=== PATIENT | female | born 1940 | race Caucasian/White ===

== ENCOUNTER 2020-06-13 16:00 | Inpatient (IN) | payer MEDICARE, OTHER ==
[~2020-06-13] VITALS: Ht 154.9 cm; Wt 66.2 kg
[2020-06-13] MEDS ORDERED: LEVO75TA5 PO (17:42)
[2020-06-13] MEDS ORDERED: DORZ10DR27 EACHEYE (17:42)
[2020-06-13] MEDS ORDERED: OLAN5TAB9 PO (17:42)
[2020-06-13] MEDS ORDERED: LORA-254 PO (17:42)
[2020-06-13] MEDS ORDERED: HYDR12.58 PO (17:42)
[2020-06-13 17:44] VITALS: BP 165/88
--- NOTE | 2020-06-13 18:37 | NUR ---
Patient is alert. Patient speaks only South African or some tanzanian. Hard to do assessment due to language barrier. Patient has slight bruising on some areas of her arms. No wounds or open areas. Patient is not confused or forgetful that I can tell of at this time. No further concerns at this time.
[2020-06-13] MEDS ORDERED: MAG HYDROX/AL HYDROX/SIMETH 30 ML ORAL.SUSP PO PRN (19:30)
[2020-06-13] MEDS ORDERED: MAGNESIUM HYDROXIDE 2,400 MG/30 ML ORAL.SUSP. PO PRN (19:30)
[2020-06-13] MEDS ORDERED: ACETAMINOPHEN 325 MG TABLET PO PRN (19:30)
[2020-06-13] MEDS ORDERED: METHYL SALICYLATE/MENTHOL TOPICAL OINTMENT 57GM TUBE. TP PRN (19:30)
[2020-06-13] MEDS: LORazepam 0.5 MG TABLET PO SCH (20:50)
[2020-06-13] MEDS: DORZOLAMIDE/TIMOLOL 2%/0.5% OPHTH SOLUTION 10ML BOTTLE. OU SCH (20:51)
[2020-06-13] MEDS: OLANZapine 7.5 MG TABLET PO SCH (20:51)
--- NOTE | 2020-06-13 20:55 | PDOC ---
Exam Note: Donn Note: Please also refer to the separate dictated note~for this date of service dictated separately.~Patient seen individually. Discussed the patient with Nursing staff reviewed the chart.~Reviewed interim history and current functioning. Reviewed vital signs,~Labs/ Radiology~and current medications noted below. Continue current treatment with the changes noted in the dictated addendum note Assessment: Vital Signs/I&O: Vital Signs Date Time Temp Pulse Resp B/P (MAP) Pulse Ox O2 Delivery O2 Flow Rate FiO2 06/13/20 17:44 97.1 94 18 165/88 (113) 98 Current Medications: Meds: Current Medications Medications (Trade) Dose Ordered Sig/Jules Route PRN Reason Start Time Stop Time Status Last Admin Dose Admin Dorzolamide/ Timolol (Cosopt) 1 drop BID OU 06/13/20 21:00 06/13/20 20:51 Lorazepam (Ativan) 0.5 mg TID PO 06/13/20 21:00 06/13/20 20:50 Olanzapine (ZyPREXA) 15 mg QHS PO 06/13/20 21:00 06/13/20 20:51 I have reviewed the current psychotropics carefully including drug interactions. Risk benefit ratio favors no change other than as noted in my dictated progress note. Diagnosis: Problems: (1) Bipolar disorder (2) Anxiety disorder, unspecified GARFIELD BELTRAN MD Jun 13, 2020 20:55
[2020-06-13 21:19] LABS: ALBUMIN/GLOBULIN RATIO 1.1 (1.0-1.7); CALCIUM 8.8 mg/dL (8.5-10.1); CREATININE 1.2 mg/dL (0.6-1.0); GFR 43.4; MAGNESIUM 1.8 mg/dL (1.8-2.4); POTASSIUM 3.5 mmol/L (3.5-5.1); TOTAL BILIRUBIN 0.2 mg/dL (0.2-1.0); TOTAL PROTEIN 5.8 g/dL (6.4-8.2)
--- NOTE | 2020-06-13 22:46 | HP ---
ADMIT DATE: 06/13/2020 PSYCHIATRIC ADMISSION HISTORY/EVALUATION. This note covers elements not covered in my initial note 06/13/2020. IDENTIFYING DATA: The patient is a 79-year-old Niuean-Tongan female referred to us from [facility] after she was medically stabilized having being referred from the home where she lives with her . The patient has a history of bipolar disorder with psychotic features; anxiety, and early dementia. She has been agitated, aggressive, disruptive at home, unmanageable, resulting in the initial referral to [place] and then to us for psychiatric stabilization. I had a telephone call from Dr. Caal from [facility]. Dr. Caal notes the patient and family have some __ essentially in Niuean. CHIEF COMPLAINT: "No." The patient has difficulty understanding Georgian and said she was speaking as well. HISTORY OF PRESENT ILLNESS: The patient has a history of bipolar disorder with periods of elation, racing thoughts, alternating with depression and recent progressively worsening memory. She has been more paranoid, agitated, and disruptive at home, resulting in this referral. PAST PSYCHIATRIC HISTORY: As above. MEDICAL HISTORY: Fibromyalgia, glaucoma, hypothyroidism, and history of acute encephalopathy. CODE STATUS: Full code. DRUG ALLERGIES: Negative. DIET: Cardiac, regular, ambulates ad ja with walker. UA on 06/08/2020 was negative. CURRENT PSYCHOTROPICS: Ativan 0.5 mg t.i.d., Zyprexa 15 mg at bedtime. FAMILY HISTORY: Noncontributory. SOCIAL HISTORY: No history of alcohol, drug abuse, physical, sexual or elder abuse. She is not known to be a perpetrator. REACTION TO HOSPITALIZATION: The patient oblivious of this. ASSETS: Supportive family. REVIEW OF SYSTEMS: No CV, , pulmonary, eye, ENT system symptoms on review. Reliability is poor. MENTAL STATUS EXAMINATION: The patient is oriented to herself. Insight, judgment, recent memory is impaired. Language function is intact. Attention span is short. Mood and affect is withdrawn, anxious, somewhat suspicious and paranoid. We will attempt to obtain an seismic interpreter for tomorrow and I will reassess the patient. I saw her rather late in the day today to find an seismic interpreter. IMPRESSION: Bipolar 1 disorder, mixed with psychotic features; major neurocognitive disorder, probably vascular with delusion, depression, behavioral disturbance. Rest as above. [facility] I will see the patient daily individually from a psychiatric standpoint. Medical followup is with Dr. Singleton/Dr. Lainez. Continue the patient on her current psychotropics. Observe baseline. Discuss with the family tomorrow. Adjust further as clinically indicated. ESTIMATED LENGTH OF STAY: 10-12 days. DISPOSITION PLANS: Either back home with or a higher level of care. MAN Rosanna BELTRAN MD DR: SILVIA/thao JOB#: [id number] / [id number]
[2020-06-14 05:45] VITALS: BP 138/84
[2020-06-14] MEDS: LEVOTHYROXINE 75 MCG TABLET PO SCH (05:59)
[2020-06-14 07:02] LABS: BASO % 1 % (0-3); EOS # 0.2 x10^3/uL (0.0-0.7); EOS % 5 % (0-3); HEMOGLOBIN 11.2 g/dL (12.0-15.5); LYMPH % 24 % (24-48); MEAN CORPUSCULAR HEMOGLOBIN 32 pg (25-35); MEAN CORPUSCULAR HGB CONC 33 g/dL (31-37); MEAN CORPUSCULAR VOLUME 97 fL (79-100); MONO # 0.3 x10^3/uL (0.0-1.1); MONO % 8 % (0-9); NEUT # 2.5 x10^3uL (1.8-7.7); NEUT % 62 % (31-73); PLATELET COUNT 216 x10^3/uL (140-400); RED CELL DISTRIBUTION WIDTH 13.3 % (11.5-14.5)
[2020-06-14] MEDS: LORazepam 0.5 MG TABLET PO SCH ×3 (09:20→19:36)
[2020-06-14] MEDS: DORZOLAMIDE/TIMOLOL 2%/0.5% OPHTH SOLUTION 10ML BOTTLE. OU SCH ×2 (09:20→19:36)
[2020-06-14] MEDS: hydroCHLOROthiazide 12.5 MG CAPSULE PO SCH (09:20)
--- NOTE | 2020-06-14 12:37 | EKG ---
[address] [address] Test Date: 2020-06-14 Test Time: 10:47:35 Pat Name: CONCEPCION MAC Department: Room: [address] [place] [address] Gender: F Weight Yardage Checker: : 1940 Requested By: GARFIELD BELTRAN Order Number: [id number] Reading MD: Measurements Intervals [place] Rate: P: NM: QRS: QRSD: T: QT: QTc: Interpretive Statements
[2020-06-14 15:24] LABS: THYROID STIM HORMONE (TSH) 2.196 uIU/mL (0.358-3.740)
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
[2020-06-14 15:43] VITALS: BP 146/71
--- NOTE | 2020-06-14 16:19 | NUR ---
ACTIVITY THERAPY ASSESSMENT Completed based on attempted interview and Pt's Psychosocial information. MEAT DEPARTMENT MANAGER met with Pt. at 1045 this morning in her room. Pt. had her breakfast tray in front of her and quietly spoke to MEAT DEPARTMENT MANAGER in Sierra Leonean. MEAT DEPARTMENT MANAGER does not speak Sierra Leonean but had a list of leisure interest questions printed in Sierra Leonean and handed it to Pt. She appeared to read it, following words with a pen and mumbling quietly. She gently scribbled over random lines/ words and did not appear to understand what the questions were asking. She did not write any words/ answers to any questions. MEAT DEPARTMENT MANAGER used a [employer] cell phone to access Lat49 Anthropologist Physical which spoke Sierra Leonean to Pt; however, Pt. did not seem to understand what the device was saying. MEAT DEPARTMENT MANAGER had Pt. speak into the phone and the translation collected "Hey, Jessica, I'm sorry baby, Elva, Elva" and "stop at [facility]." MEAT DEPARTMENT MANAGER cannot confirm no deny the accuracy of those statements. Pt. was calm the entire time, seemed she could have read/ looked at those assessment questions for quite some time if MEAT DEPARTMENT MANAGER did not collect it back and say thank you. Pt. waved as MEAT DEPARTMENT MANAGER left and said "ciao." Pt's Psychosocial indicated Pt. enjoys cooking, walking (treadmill), Sierra Leonean music and magazines, dancing and socializing with her family. Initial goal aimed to increase stimulation: Pt. will participate in at least five individual Activity Therapy Sessions before discharge.
--- NOTE | 2020-06-14 16:37 | NUR ---
Nursing note: Pt has remained in her room for most of this shift. She is pleasant, med compliant and cooperative. Pt does not appear to be in any pain or discomfort. Pt is unable to speak Maori and when it is attempted to use HoverWind, pt only reads the statements/questions and does not actually respond to them. Pt has been observed picking at unseen things on the floor in her room, but does not seem bothered by anything. She is currently sitting quietly in her room. Will continue to monitor.
[2020-06-14] MEDS: OLANZapine 7.5 MG TABLET PO SCH (19:37)
--- NOTE | 2020-06-14 21:50 | NUR ---
Nursing Note: Pt withdrawn to room, sitting quietly at shift change. Pt calm but confused. Communication difficult due to language barrier and confusion. Pt cooperative with assessment and compliant with medications administered whole. Pt currently sitting quietly in the hallway.
--- NOTE | 2020-06-14 22:00 | PDOC ---
Exam Note: Donn Note: Please also refer to the separate dictated note~for this date of service dictated separately.~Patient seen individually. Discussed the patient with Nursing staff reviewed the chart.~Reviewed interim history and current functioning. Reviewed vital signs,~Labs/ Radiology~and current medications noted below. Continue current treatment with the changes noted in the dictated addendum note Assessment: Vital Signs/I&O: Vital Signs Date Time Temp Pulse Resp B/P (MAP) Pulse Ox O2 Delivery O2 Flow Rate FiO2 06/14/20 15:43 97.2 94 16 146/71 (96) 97 I & O 06/13/20 06/13/20 06/14/20 14:59 22:59 06:59 Intake Total 340 ml Balance 340 ml Labs: Laboratory Tests Test 06/14/20 06:44 White Blood Count 4.0 x10^3/uL (4.0-11.0) Red Blood Count 3.50 x10^6/uL (3.50-5.40) Hemoglobin 11.2 g/dL (12.0-15.5) L Hematocrit 34.0 % (36.0-47.0) L Mean Corpuscular Volume 97 fL (79-100) Mean Corpuscular Hemoglobin 32 pg (25-35) Mean Corpuscular Hemoglobin Concent 33 g/dL (31-37) Red Cell Distribution Width 13.3 % (11.5-14.5) Platelet Count 216 x10^3/uL (140-400) Neutrophils (%) (Auto) 62 % (31-73) Lymphocytes (%) (Auto) 24 % (24-48) Monocytes (%) (Auto) 8 % (0-9) Eosinophils (%) (Auto) 5 % (0-3) H Basophils (%) (Auto) 1 % (0-3) Neutrophils # (Auto) 2.5 x10^3uL (1.8-7.7) Lymphocytes # (Auto) 1.0 x10^3/uL (1.0-4.8) Monocytes # (Auto) 0.3 x10^3/uL (0.0-1.1) Eosinophils # (Auto) 0.2 x10^3/uL (0.0-0.7) Basophils # (Auto) 0.0 x10^3/uL (0.0-0.2) Vitamin B12 Level 497 pg/mL (247-911) 25-Hydroxy Vitamin D Total 31.0 ng/mL (30-100) Thyroxine (T4) 8.0 ug/dL (4.5-12.0) Total Triiodothyronine (TT3) 92 ng/dL (71-180) Treponema pallidum Antibody Nonreactive (Nonreactive) Current Medications: Meds: Current Medications Medications (Trade) Dose Ordered Sig/Jules Route PRN Reason Start Time Stop Time Status Last Admin Dose Admin Levothyroxine Sodium (Synthroid) 75 mcg DAILY06 PO 06/14/20 06:00 06/14/20 05:59 Hydrochlorothiazide (Microzide) 12.5 mg DAILY PO 06/14/20 09:00 06/14/20 09:20 I have reviewed the current psychotropics carefully including drug interactions. Risk benefit ratio favors no change other than as noted in my dictated progress note. 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
[2020-06-15] MEDS: LEVOTHYROXINE 75 MCG TABLET PO SCH (05:27)
[2020-06-15 06:08] VITALS: BP 147/84
[2020-06-15] MEDS: DORZOLAMIDE/TIMOLOL 2%/0.5% OPHTH SOLUTION 10ML BOTTLE. OU SCH ×2 (09:00→19:51)
--- NOTE | 2020-06-15 10:31 | NUR ---
WEEKLY ACTIVITY THERAPY NOTE Date of Admission: 06/13 Date of AT Assessment: 06/14 Precipitating behaviors that initiated intake and admission: nervous, "out of control,"paranoid, hallucinating, nonsensical speech Goal aimed: to increase stimulation Initial Goal: Pt. will participate in at least five individual Activity Therapy Sessions before discharge. Weekly progress towards goal: goal evaluation begins next week Group participation level: NA Weekly highlights: arrived and assessed Pt on Friday Behaviors observed: calm and appears content in room, speaks Omani Plan: no change to goal Beneficial adaptations:
[2020-06-15] MEDS: LORazepam 0.5 MG TABLET PO SCH ×3 (10:51→20:10)
[2020-06-15] MEDS: hydroCHLOROthiazide 12.5 MG CAPSULE PO SCH (10:51)
--- NOTE | 2020-06-15 11:37 | TX PLAN ---
Interdisciplinary Tx Plan Admission Information Jun 13, 2020 at 16:00 Legal Status (on Admission): Voluntary, DPOA DPOA/Guardian Name: Elva Johnson- daughter Contact Other Contact Name: Bart Everett Verified Code Status: Full Code Allergies: Coded Allergies: No Known Drug Allergies (Unverified , 06/13/20) Estimated Length of Stay: 14 Diagnoses Primary Diagnosis: Bipolar d/o with psychotic features Reasons for Admission: Delusions, Depressed, Sig. Change Appetite, Anxiety/Panic, Suspicious/paranoid, Confusion/Disoriented, Isolating Problem in Patient's Words: DPOA reports that Lesly's mood and cognition began to decline about 6 weeks ago when Lesly's spouse started chemo treatments. Her mood progressively worsened to where she was not eating or drinking so family took her to [facility]. Additional Admission Comments: Per intake record, hallucinating, increasingly depressed and anxious, having nonsensical speech, catatonic posturing, staring/rocking in a chair, poor intake of foods and fluids, and ruminating. Problems Active Problems: poor intake of meals and fluids paranoia confusion, disorientation nonsensical speech catatonic episodes Inactive Problems: slept 7.5 hours last night medication compliant Pt Strengths/Limitations Ability for [place]: Poor Cognitive Functioning/Ability: Fair Communication Skills/Ability: Fair Financial Resources: Fair Insight/Judgement: Poor Intellectual Ability: Fair Physical Health: Fair Social Skills: Fair Stability in Family: Good Verbal Skills: Fair Discharge Criteria Discharge Criteria: Adequate arrangements @DC, Improved behavior, Improved mood/thought Preliminary Discharge Plan Preliminary DC Plan: Home Special Precautions Fall Risk: High Initial D/C Plan Home with spouse, daugthers assist with care giving. Identified Discharge Needs: Follow up with PCP and Psychiatrist Currently Utilized Resources Currently Utilized Resources/P: PCP Out patient psychiatry Identified Problems/Hx/Goals Objectives/Short-Term Goals Short Term Goals: Control abnormal behavior, Dec. Anxiety/Panic, Decrease [place] tion, Dec. Symp. Depression, Medication Stabilization, Monitor Med Effects, Prevent Deterioration Short Term Goals in Patient's: Per POA, for Lesly to return to baseline, eating/drinking adequate amounts, laughing, and socializing with family. Interventions/Frequency Staff Interventions/Frequency&: Nursing provides routine safety checks, medication administration, and adl support. Psychiatry visits three times weekly. SW visits twice weekly. Recreational therapy groups as Lesly desires. 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 Social: Lesly enjoys looking at magazines, Tuvaluan music, and walking. Education: Lesly attended school thru the third grade. Community Follow-up PCP Out patient psychiatry Community Provider/Family Inpu: wilbur Stevenson, participated in team meeting via phone on 06/15/20. Treatment Plan Explained Patient/Insulation Manager had this treatment plan explained to him/her as indicated by the signature below and has been given the opportunity to ask questions and make suggestions: Date: Patient/Insulation Manager Signature: GIUSEPPE BEACH Jun 15, 2020 11:37
[2020-06-15 11:59] LABS: COLOR,URINE YELLOW
[2020-06-15 12:05] LABS: CLARITY,URINE CLEAR; GLUCOSE,URINE NEG (NEG)
[2020-06-15 12:09] LABS: BILIRUBIN,URINE NEG (NEG)
[2020-06-15 12:13] LABS: NITRITE,URINE NEG (NEG); UROBILINOGEN,URINE 0.2 mg/dL (0.2 mg/dL)
[2020-06-15 12:17] LABS: BACTERIA,URINE FEW /HPF (0-FEW); SQUAMOUS EPITHELIAL CELL,UR OCC /LPF
[2020-06-15 16:22] VITALS: BP 149/83
[2020-06-15] MEDS: lamoTRIgine 25 MG TABLET. PO SCH (19:51)
[2020-06-15] MEDS: OLANZapine 10 MG TABLET PO SCH (19:51)
--- NOTE | 2020-06-15 21:01 | PDOC ---
Exam Note: Donn Note: Please also refer to the separate dictated note~for this date of service dictated separately.~Patient seen individually. Discussed the patient with Nursing staff reviewed the chart.~Reviewed interim history and current functioning. Reviewed vital signs,~Labs/ Radiology~and current medications noted below. Continue current treatment with the changes noted in the dictated addendum note Assessment: Vital Signs/I&O: Vital Signs Date Time Temp Pulse Resp B/P (MAP) Pulse Ox O2 Delivery O2 Flow Rate FiO2 06/15/20 16:22 97.4 92 16 149/83 (105) 97 06/15/20 06:08 Room Air I & O 06/14/20 06/14/20 06/15/20 15:00 23:00 07:00 Intake Total 600 ml 360 ml Balance 600 ml 360 ml Labs: Laboratory Tests Test 06/15/20 09:40 Urine Collection Type Unknown Urine Color Yellow Urine Clarity Clear Urine pH 6.0 Urine Specific [place] 1.015 Urine Protein Neg (NEG-TRACE) Urine Glucose (UA) Neg mg/dL (NEG) Urine Ketones (Stick) Neg mg/dL (NEG) Urine Blood Neg (NEG) Urine Nitrite Neg (NEG) Urine Bilirubin Neg (NEG) Urine Urobilinogen Dipstick 0.2 mg/dL (0.2 mg/dL) Urine Leukocyte Esterase Neg (NEG) Urine RBC 1-2 /HPF (0-2) Urine WBC 1-4 /HPF (0-4) Urine Squamous Epithelial Cells Occ /LPF Urine Bacteria Few /HPF (0-FEW) Current Medications: Meds: Current Medications Medications (Trade) Dose Ordered Sig/Jules Route PRN Reason Start Time Stop Time Status Last Admin Dose Admin Olanzapine (ZyPREXA) 10 mg QHS PO 06/15/20 21:00 06/15/20 19:51 Lamotrigine (LaMICtal) 25 mg QHS PO 06/15/20 21:00 06/17/20 23:00 06/15/20 19:51 Lorazepam (Ativan) 0.5 mg HS PO 06/15/20 21:00 06/15/20 20:10 I have reviewed the current psychotropics carefully including drug interactions. Risk benefit ratio favors no change other than as noted in my dictated progress note. 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
--- NOTE | 2020-06-15 22:08 | NUR ---
Nursing Note: Pt withdrawn to room, sitting quietly at shift change. Pt calm, but disorganized and confused. Pt cooperative with assessment and compliant with medications administered whole. Pt currently resting quietly in bed.
[2020-06-15 23:07] LABS: HEMOGLOBIN A1C 5.1 % (4.8-5.6)
[2020-06-16] MEDS: LEVOTHYROXINE 75 MCG TABLET PO SCH (05:32)
[2020-06-16 05:35] VITALS: BP 146/84
[2020-06-16] MEDS: LORazepam 0.5 MG TABLET PO SCH ×3 (08:50→20:23)
[2020-06-16] MEDS: DORZOLAMIDE/TIMOLOL 2%/0.5% OPHTH SOLUTION 10ML BOTTLE. OU SCH ×2 (08:50→20:23)
[2020-06-16] MEDS: hydroCHLOROthiazide 12.5 MG CAPSULE PO SCH (08:50)
[2020-06-16] MEDS ORDERED: LORazepam 0.5 MG TABLET PO SCH (09:00)
[2020-06-16 16:21] VITALS: BP 132/82
[2020-06-16] MEDS: OLANZapine 10 MG TABLET PO SCH (20:17)
[2020-06-16] MEDS: lamoTRIgine 25 MG TABLET. PO SCH (20:21)
--- NOTE | 2020-06-16 20:47 | PDOC ---
Exam Note: Donn Note: Please also refer to the separate dictated note~for this date of service dictated separately.~Patient seen individually. Discussed the patient with Nursing staff reviewed the chart.~Reviewed interim history and current functioning. Reviewed vital signs,~Labs/ Radiology~and current medications noted below. Continue current treatment with the changes noted in the dictated addendum note Assessment: Vital Signs/I&O: Vital Signs Date Time Temp Pulse Resp B/P (MAP) Pulse Ox O2 Delivery O2 Flow Rate FiO2 06/16/20 16:21 97.2 76 16 132/82 (99) 97 06/15/20 06:08 Room Air I & O 06/15/20 06/15/20 06/16/20 15:00 23:00 07:00 Intake Total 200 ml 720 ml Balance 200 ml 720 ml Current Medications: Meds: Current Medications Medications (Trade) Dose Ordered Sig/Jules Route PRN Reason Start Time Stop Time Status Last Admin Dose Admin Olanzapine (ZyPREXA) 10 mg QHS PO 06/15/20 21:00 06/16/20 20:17 Lamotrigine (LaMICtal) 25 mg QHS PO 06/15/20 21:00 06/17/20 23:00 06/16/20 20:21 Lorazepam (Ativan) 0.25 mg BID92 PO 06/16/20 09:00 06/16/20 15:03 Lorazepam (Ativan) 0.5 mg HS PO 06/15/20 21:00 06/16/20 20:23 I have reviewed the current psychotropics carefully including drug interactions. Risk benefit ratio favors no change other than as noted in my dictated progress note. Diagnosis: Problems: (1) Bipolar disorder (2) Anxiety disorder, unspecified (3) Dementia, vascular, with depression (4) Dementia, vascular, with delusions (5) Bipolar disorder, curr episode mixed, severe, with psychotic features (6) Vascular dementia of acute onset with behavioral disturbance (7) Major neurocognitive disorder, due to vascular disease, with behavioral disturbance, mild GARFIELD BELTRAN MD Jun 16, 2020 20:47
--- NOTE | 2020-06-16 22:06 | NUR ---
Patient compliant with medications taken whole. She speaks mostly Maldivian but said "thank you very much" and was able to ask for more water. Patient has had no adverse behaviors this shift and has been sitting calmly in the chair in her room.
[2020-06-17] MEDS: LEVOTHYROXINE 75 MCG TABLET PO SCH (05:24)
[2020-06-17 06:34] VITALS: BP 139/81
[2020-06-17 06:45] LABS: BACTERIA,URINE FEW /HPF (0-FEW); BILIRUBIN,URINE NEG (NEG); CLARITY,URINE HAZY; COLOR,URINE YELLOW; GLUCOSE,URINE NEG (NEG); NITRITE,URINE NEG (NEG); RBC,URINE RARE /HPF (0-2); SQUAMOUS EPITHELIAL CELL,UR FEW /LPF; UROBILINOGEN,URINE 0.2 mg/dL (0.2 mg/dL)
[2020-06-17] MEDS: DORZOLAMIDE/TIMOLOL 2%/0.5% OPHTH SOLUTION 10ML BOTTLE. OU SCH ×2 (09:45→20:24)
[2020-06-17] MEDS: hydroCHLOROthiazide 12.5 MG CAPSULE PO SCH (09:45)
[2020-06-17] MEDS: LORazepam 0.5 MG TABLET PO SCH ×3 (09:46→20:24)
--- NOTE | 2020-06-17 11:19 | CONS ---
DATE OF CONSULTATION: 06/17/2020 ATTENDING PHYSICIAN: Dr. Gee. HISTORY AND PHYSICAL: The patient is a 79-year-old female who speaks [place], she has a limited understanding of Vincentian. She has been living with her . She has a longstanding history of bipolar disorder, anxiety and dementia. They could not manage her at home. She was admitted for further treatment and evaluation. PAST MEDICAL HISTORY: Gleaned from the chart. She has bipolar disorder, generalized anxiety, dementia, vascular with behavioral issues, manic episodes and neurocognitive deficits. She is also hypothyroid. Her current medicines include dorzolamide eye drops, hydrochlorothiazide, Synthroid, lorazepam, and Zyprexa. She has no recorded drug allergies. She is a nonsmoker and nondrinker. FAMILY HISTORY: Unobtainable due to language barrier. REVIEW OF SYSTEMS: Unobtainable due to language barrier. PHYSICAL EXAMINATION: GENERAL: When I saw her, this is a pleasant elderly female, in no acute distress. INITIAL VITAL SIGNS: Showed a blood pressure 132/82, pulse is 76 and regular, temperature 97.2. Her oxygen saturations are 97%. HEENT: Head is without trauma. Pupils are a bit sunken. Orbits are normal. NECK: Supple. No bruits identified. Lungs are otherwise clear to auscultation. CARDIOVASCULAR: Showed regular heart tones. No gallops. ABDOMEN: Soft, no guarding. EXTREMITIES: Without edema. NEUROLOGIC: Focally intact. We could not assess a full neurologic exam due to the patient's language barriers and confusion. PERTINENT LABORATORY: Sodium 144, potassium 3.5 mEq per liter. Her hemoglobin is 11.2 grams/dL with white count of 4000. Treponema pallidum serology was negative. The rest of the lab work was reviewed and unremarkable. FINAL DISCHARGE DIAGNOSES: 1. This 79-year-old female has profound dementia with behavioral issues. 2. Psychosis. 3. Hypothyroidism, on replacement. 4. Essential hypertension, currently normotensive. RECOMMENDATIONS: 1. I reviewed her medication. I really do not think she needs the hydrochlorothiazide. I took the liberty of stopping it. 2. Other home meds were reviewed and should be continued. 3. She is medically stable at this time. I should gladly follow along during the course of her inpatient stay. Thank you so much for asking me to see this patient for medical consultation. MARLENE AGUDELO MD DR: DALIA/thao JOB#: [id number] / [id number]
--- NOTE | 2020-06-17 14:03 | NUR ---
Do Ho informed of LFT and D-dimer results. No new orders.
--- NOTE | 2020-06-17 15:33 | NUR ---
Pt up for meals in room. Appetite poor. Has been withdrawn and quiet. Refused to open eyes for Dr Lainez. Has been compliant with meds and cares.
[2020-06-17 16:05] VITALS: BP 139/87
[2020-06-17] MEDS: lamoTRIgine 25 MG TABLET. PO SCH (20:24)
[2020-06-17] MEDS: OLANZapine 10 MG TABLET PO SCH (20:24)
--- NOTE | 2020-06-17 21:37 | PDOC ---
Exam Note: Donn Note: This note is a late entry for 06/14/2020 covers elements not covered in my initial note. Subjective: The patient was reviewed on telehealth rounds in the evening of 06/14/2020 with Maddie CORLEY. Discussed with nursing staff, reviewed the chart. The patient slept for 7-1/2 hours previous night. Overall the patient has been pleasant, compliant with medications. She seemed to be paranoid and suspicious, picking on things from the floor when there is nothing there. She did have a telephone conversation with her daughter yesterday. Due to the language barrier and even environment she has been more isolated and we will coordinate with the daughter being on the video conference with her couple of times a day to help with this. Late in the evening I had a lengthy conversation with the patients daughter Elva and gathered the patients history. She had been treated for many years by Dr. Hoyt, psychiatrist in [place] who has since retired. She was diagnosed with bipolar disorder and remained on lithium for many years before developing some renal complications and this was stopped. Her care was then transferred and according to the daughter most recently she was started on carbamazepine for her bipolar disorder. Nevertheless, it seems like her carbamazepine was discontinued at [facility]. Reportedly per the daughter, CT head and MRIs were clinically non-conclusive. Over the years as the children grew up they remembered their mother having periods of time when she will become totally non-functional, drying can worker the corner of the house oblivious of what was going on around her stating into space, crying and unable to take care of any of the brand coordinator that she was managing quite efficiently before that. Review of Systems: No CV, , pulmonary, eye, ENT system symptoms on review. Mental Status Exam: The patient is oriented to herself and situation. Speech has moderate latency. Often response is monosyllabic. Abstraction is fair. Computation is impaired. Language function is intact. Attention span is short. She appears somewhat paranoid. No active suicidal or homicidal ideation. Laboratory Data: Reviewed. Impression: Bipolar 1 disorder depressed with psychotic features. 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 Anxiety disorder unspecified. Impulse control disorder unspecified. Hypothyroidism. History of acute encephalopathy. Glaucoma. Plan: For now the patient remains on Ativan 0.5 mg t.i.d., Zyprexa 15 mg h.s. She remains psychotic despite this and we may consider reducing the Zyprexa starting Risperdal considering Lamictal as a mood stabilizer and gradually tapering the Ativan. Discussed all this at length with the daughter. Assessment: Vital Signs/I&O: Vital Signs Date Time Temp Pulse Resp B/P (MAP) Pulse Ox O2 Delivery O2 Flow Rate FiO2 06/17/20 16:05 97.4 76 16 139/87 (104) 96 06/17/20 06:34 Room Air I & O 06/16/20 06/16/20 06/17/20 15:00 23:00 07:00 Intake Total 720 ml 560 ml Balance 720 ml 560 ml Labs: Laboratory Tests Test 06/17/20 06:00 Urine Collection Type Unknown Urine Color Yellow Urine Clarity Hazy Urine pH 6.5 Urine Specific [place] 1.015 Urine Protein Neg (NEG-TRACE) Urine Glucose (UA) Neg mg/dL (NEG) Urine Ketones (Stick) Neg mg/dL (NEG) Urine Blood Neg (NEG) Urine Nitrite Neg (NEG) Urine Bilirubin Neg (NEG) Urine Urobilinogen Dipstick 0.2 mg/dL (0.2 mg/dL) Urine Leukocyte Esterase Trace (NEG) Urine RBC Rare /HPF (0-2) Urine WBC 5-10 /HPF (0-4) Urine Squamous Epithelial Cells Few /LPF Urine Bacteria Few /HPF (0-FEW) Urine Mucus Slight /LPF Current Medications: I have reviewed the current psychotropics carefully including drug interactions. Risk benefit ratio favors no change other than as noted in my dictated progress note. Diagnosis: Problems: (1) Bipolar disorder (2) Anxiety disorder, unspecified (3) Dementia, vascular, with depression (4) Dementia, vascular, with delusions (5) Bipolar disorder, curr episode mixed, severe, with psychotic features (6) Vascular dementia of acute onset with behavioral disturbance (7) Major neurocognitive disorder, due to vascular disease, with behavioral disturbance, mild GARFIELD BELTRAN MD Jun 17, 2020 21:37
--- NOTE | 2020-06-17 21:50 | PDOC ---
Exam Note: Donn Note: This note is a late entry for 06/15/2020 covers elements not covered in my initial note. Subjective: The patient was reviewed on telehealth rounds in the morning of 06/15/2020 for a treatment team meeting with Matilda Reynoso and Angeles (manager social responsibility), Suze, activity therapy and Nevin RN. Discussed with nursing staff, reviewed the chart. The patient slept for 5 hours previous night. The patients daughter Elva attended the treatment team meeting. We reviewed her history at length again and symptoms are reflective of bipolar disorder. She remains somewhat isolated on the unit due to her language barrier and nursing staff will coordinate with the daughter to have video conference with the patient twice a day. Overall the patient remains withdrawn, remains somewhat paranoid during conversations with daughter. Review of Systems: No CV, , pulmonary, eye, ENT system symptoms on review. Mental Status Exam: The patient is oriented to herself. She is pleasant, verbal, interactive as I met with her but communication is difficult due to language barrier. Abstraction is fair. Computation is impaired. Language function is intact. Mood and affect somewhat withdrawn. Laboratory Data: Reviewed. Impression: Bipolar 1 disorder depressed with psychotic features. 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 Anxiety disorder unspecified. Impulse control disorder unspecified. Plan: We will go ahead and reduce the Zyprexa from 50 mg h.s. to 10 mg h.s. and then down to 3 mg h.s. Start Risperdal 0.5 mg h.s. and Lamictal 25 mg a day increasing in 3 days to 50 mg a day as a mood stabilizer. Continue rest of the psychotropics. She does complain of having had some vomiting previous night but none today. We will monitor this. Assessment: Vital Signs/I&O: Vital Signs Date Time Temp Pulse Resp B/P (MAP) Pulse Ox O2 Delivery O2 Flow Rate FiO2 06/17/20 16:05 97.4 76 16 139/87 (104) 96 06/17/20 06:34 Room Air I & O 06/16/20 06/16/20 06/17/20 15:00 23:00 07:00 Intake Total 720 ml 560 ml Balance 720 ml 560 ml Labs: Laboratory Tests Test 06/17/20 06:00 Urine Collection Type Unknown Urine Color Yellow Urine Clarity Hazy Urine pH 6.5 Urine Specific [place] 1.015 Urine Protein Neg (NEG-TRACE) Urine Glucose (UA) Neg mg/dL (NEG) Urine Ketones (Stick) Neg mg/dL (NEG) Urine Blood Neg (NEG) Urine Nitrite Neg (NEG) Urine Bilirubin Neg (NEG) Urine Urobilinogen Dipstick 0.2 mg/dL (0.2 mg/dL) Urine Leukocyte Esterase Trace (NEG) Urine RBC Rare /HPF (0-2) Urine WBC 5-10 /HPF (0-4) Urine Squamous Epithelial Cells Few /LPF Urine Bacteria Few /HPF (0-FEW) Urine Mucus Slight /LPF Current Medications: I have reviewed the current psychotropics carefully including drug interactions. Risk benefit ratio favors no change other than as noted in my dictated progress note. Diagnosis: Problems: (1) Bipolar disorder (2) Anxiety disorder, unspecified (3) Dementia, vascular, with depression (4) Dementia, vascular, with delusions (5) Bipolar disorder, curr episode mixed, severe, with psychotic features (6) Vascular dementia of acute onset with behavioral disturbance (7) Major neurocognitive disorder, due to vascular disease, with behavioral disturbance, mild GARFIELD BELTRAN MD Jun 17, 2020 21:50
--- NOTE | 2020-06-17 22:01 | PDOC ---
Exam Note: Donn Note: This note is a late entry for 06/16/2020 covers elements not covered in my initial note. Subjective: The patient was reviewed on telehealth rounds in the evening of 06/16/2020 with Nevin CORLEY. Discussed with nursing staff, reviewed the chart. The patient slept for 5-3/4 hours previous night. The patient has talked to her family twice but we are awaiting feedback from the family and how they think she is doing. Nevertheless, initial feedback from Elva, delbert daughter via the nursing staff indicates that she is still paranoid but improved. We started Lamictal as a mood stabilizer, reduced Zyprexa, added Risperdal tapering the Ativan. Review of Systems: No CV, , pulmonary, eye, ENT system symptoms on review. Reliability poor due to language barrier and she speaks essentially only in Dive[place]. Mental Status Exam: The patient is oriented to herself and situation. She is verbal, interactive but not very communicative due to the language barrier. She was otherwise pleasant, smiling, seems more disorganized and this is reflective of her language/communication problems. Speech has moderate latency. Often response is monosyllabic. Abstraction is fair. Computation is impaired. L anguage function is intact. Attention span is short. No psychotic symptoms, suicidal or homicidal ideation. Laboratory Data: Reviewed. Impression: Bipolar 1 disorder depressed with psychotic features. 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 Anxiety disorder unspecified. Impulse control disorder unspecified. Hypothyroidism. History of acute encephalopathy. Glaucoma. Plan: No change from initial note. Assessment: Vital Signs/I&O: Vital Signs Date Time Temp Pulse Resp B/P (MAP) Pulse Ox O2 Delivery O2 Flow Rate FiO2 06/17/20 16:05 97.4 76 16 139/87 (104) 96 06/17/20 06:34 Room Air I & O 06/16/20 06/16/20 06/17/20 15:00 23:00 07:00 Intake Total 720 ml 560 ml Balance 720 ml 560 ml Labs: Laboratory Tests Test 06/17/20 06:00 Urine Collection Type Unknown Urine Color Yellow Urine Clarity Hazy Urine pH 6.5 Urine Specific [place] 1.015 Urine Protein Neg (NEG-TRACE) Urine Glucose (UA) Neg mg/dL (NEG) Urine Ketones (Stick) Neg mg/dL (NEG) Urine Blood Neg (NEG) Urine Nitrite Neg (NEG) Urine Bilirubin Neg (NEG) Urine Urobilinogen Dipstick 0.2 mg/dL (0.2 mg/dL) Urine Leukocyte Esterase Trace (NEG) Urine RBC Rare /HPF (0-2) Urine WBC 5-10 /HPF (0-4) Urine Squamous Epithelial Cells Few /LPF Urine Bacteria Few /HPF (0-FEW) Urine Mucus Slight /LPF Current Medications: I have reviewed the current psychotropics carefully including drug interactions. Risk benefit ratio favors no change other than as noted in my dictated progress note. Diagnosis: Problems: (1) Bipolar disorder (2) Anxiety disorder, unspecified (3) Dementia, vascular, with depression (4) Dementia, vascular, with delusions (5) Bipolar disorder, curr episode mixed, severe, with psychotic features (6) Vascular dementia of acute onset with behavioral disturbance (7) Major neurocognitive disorder, due to vascular disease, with behavioral disturbance, mild GARFIELD BELTRAN MD Jun 17, 2020 22:01
--- NOTE | 2020-06-17 22:06 | PDOC ---
Exam Note: Donn Note: Please also refer to the separate dictated note~for this date of service dictated separately.~Patient seen individually. Discussed the patient with Nursing staff reviewed the chart.~Reviewed interim history and current functioning. Reviewed vital signs,~Labs/ Radiology~and current medications noted below. Continue current treatment with the changes noted in the dictated addendum note Assessment: Vital Signs/I&O: Vital Signs Date Time Temp Pulse Resp B/P (MAP) Pulse Ox O2 Delivery O2 Flow Rate FiO2 06/17/20 16:05 97.4 76 16 139/87 (104) 96 06/17/20 06:34 Room Air I & O 06/16/20 06/16/20 06/17/20 15:00 23:00 07:00 Intake Total 720 ml 560 ml Balance 720 ml 560 ml Labs: Laboratory Tests Test 06/17/20 06:00 Urine Collection Type Unknown Urine Color Yellow Urine Clarity Hazy Urine pH 6.5 Urine Specific [place] 1.015 Urine Protein Neg (NEG-TRACE) Urine Glucose (UA) Neg mg/dL (NEG) Urine Ketones (Stick) Neg mg/dL (NEG) Urine Blood Neg (NEG) Urine Nitrite Neg (NEG) Urine Bilirubin Neg (NEG) Urine Urobilinogen Dipstick 0.2 mg/dL (0.2 mg/dL) Urine Leukocyte Esterase Trace (NEG) Urine RBC Rare /HPF (0-2) Urine WBC 5-10 /HPF (0-4) Urine Squamous Epithelial Cells Few /LPF Urine Bacteria Few /HPF (0-FEW) Urine Mucus Slight /LPF Current Medications: I have reviewed the current psychotropics carefully including drug interactions. Risk benefit ratio favors no change other than as noted in my dictated progress note. Diagnosis: Problems: (1) Bipolar disorder (2) Anxiety disorder, unspecified (3) Dementia, vascular, with depression (4) Dementia, vascular, with delusions (5) Bipolar disorder, curr episode mixed, severe, with psychotic features (6) Vascular dementia of acute onset with behavioral disturbance (7) Major neurocognitive disorder, due to vascular disease, with behavioral disturbance, mild GARFIELD BELTARN MD Jun 17, 2020 22:06
--- NOTE | 2020-06-17 22:25 | NUR ---
Pt awake in her bed this evening, laying calmly. Pt compliant with whole medications and assessment. Pt currently laying in bed awake.
[2020-06-17] MEDS: risperiDONE 0.25 MG TABLET. PO SCH (22:53)
[2020-06-18] MEDS: LEVOTHYROXINE 75 MCG TABLET PO SCH (05:02)
[2020-06-18 06:17] VITALS: BP 136/84
[2020-06-18] MEDS: LORazepam 0.5 MG TABLET PO SCH ×3 (08:42→20:38)
[2020-06-18] MEDS: DORZOLAMIDE/TIMOLOL 2%/0.5% OPHTH SOLUTION 10ML BOTTLE. OU SCH ×2 (08:43→20:35)
--- NOTE | 2020-06-18 09:58 | NUR ---
Patient calm and cooperative. Patient family called to translate per treatment team. Patient confused about the year but is more with it today during general conversation per family. Patient has no further needs at this time. Patient states she slept well.
--- NOTE | 2020-06-18 10:30 | NUR ---
Resumed care of pt.
[2020-06-18 16:24] VITALS: BP 138/86
--- NOTE | 2020-06-18 16:30 | NUR ---
Pt c/o low back and B knee pain. Tylenol given and bengay applied.
[2020-06-18] MEDS: OLANZapine 10 MG TABLET PO SCH (20:35)
[2020-06-18] MEDS: risperiDONE 0.25 MG TABLET. PO SCH (20:35)
[2020-06-18] MEDS: lamoTRIgine 25 MG TABLET. PO SCH (20:38)
--- NOTE | 2020-06-18 20:45 | PDOC ---
Exam Note: Donn Note: This note is a late entry for 06/17/2020 covers elements not covered in my initial note. Subjective: The patient was reviewed on telehealth rounds in the evening of 06/17/2020 with Mariel CORLEY. Discussed with nursing staff, reviewed the chart. The patient slept for 7-1/2 hours previous night. The patient has had conversation with her family but we have not received feedback from them. She does appear somewhat less paranoid. Review of Systems: No CV, , pulmonary, eye, ENT system symptoms on review. Ambulation impaired with walker. She has significant language barrier due to speaking Cam[place]onian preferentially. Mental Status Exam: The patient is oriented to herself and situation. Speech is coherent, has some latency. Often response is monosyllabic. Abstraction is fair. Computation is impaired. Language function is intact. Attention span is short. No psychotic symptoms, suicidal or homicidal ideation. She is less paranoid. Laboratory Data: Reviewed. Impression: Bipolar 1 disorder depressed with psychotic features. 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 Anxiety disorder unspecified. Plan: No change from initial note. Oral intake has been poor and we have encouraged this and have the family encourage her as well. Zyprexa has been tapered. She has been started on Lamictal which is being adjusted and she was started on Risperdal. Adjust these as clinically intake. Assessment: Vital Signs/I&O: Vital Signs Date Time Temp Pulse Resp B/P (MAP) Pulse Ox O2 Delivery O2 Flow Rate FiO2 06/18/20 16:24 97.8 85 20 138/86 (103) 96 06/18/20 06:17 Room Air I & O 06/17/20 06/17/20 06/18/20 15:00 23:00 07:00 Intake Total 320 ml 360 ml Balance 320 ml 360 ml Current Medications: Meds: Current Medications Medications (Trade) Dose Ordered Sig/Jules Route PRN Reason Start Time Stop Time Status Last Admin Dose Admin Lamotrigine (LaMICtal) 50 mg QHS PO 06/18/20 21:00 06/18/20 20:38 Olanzapine (ZyPREXA) 5 mg QHS PO 06/18/20 21:00 06/18/20 20:38 Risperidone (RisperDAL) 0.5 mg QHS PO 06/17/20 22:45 06/18/20 20:35 I have reviewed the current psychotropics carefully including drug interactions. Risk benefit ratio favors no change other than as noted in my dictated progress note. Diagnosis: Problems: (1) Bipolar disorder (2) Anxiety disorder, unspecified (3) Dementia, vascular, with depression (4) Dementia, vascular, with delusions (5) Bipolar disorder, curr episode mixed, severe, with psychotic features (6) Vascular dementia of acute onset with behavioral disturbance (7) Major neurocognitive disorder, due to vascular disease, with behavioral disturbance, mild GARFIELD BELTRAN MD Jun 18, 2020 20:45
--- NOTE | 2020-06-18 20:51 | PDOC ---
Exam Note: Donn Note: Please also refer to the separate dictated note~for this date of service dictated separately.~Patient seen individually. Discussed the patient with Nursing staff reviewed the chart.~Reviewed interim history and current functioning. Reviewed vital signs,~Labs/ Radiology~and current medications noted below. Continue current treatment with the changes noted in the dictated addendum note Assessment: Vital Signs/I&O: Vital Signs Date Time Temp Pulse Resp B/P (MAP) Pulse Ox O2 Delivery O2 Flow Rate FiO2 06/18/20 16:24 97.8 85 20 138/86 (103) 96 06/18/20 06:17 Room Air I & O 06/17/20 06/17/20 06/18/20 14:59 22:59 06:59 Intake Total 320 ml 360 ml Balance 320 ml 360 ml Current Medications: Meds: Current Medications Medications (Trade) Dose Ordered Sig/Jules Route PRN Reason Start Time Stop Time Status Last Admin Dose Admin Lamotrigine (LaMICtal) 50 mg QHS PO 06/18/20 21:00 06/18/20 20:38 Olanzapine (ZyPREXA) 5 mg QHS PO 06/18/20 21:00 06/18/20 20:38 Risperidone (RisperDAL) 0.5 mg QHS PO 06/17/20 22:45 06/18/20 20:35 I have reviewed the current psychotropics carefully including drug interactions. Risk benefit ratio favors no change other than as noted in my dictated progress note. Diagnosis: Problems: (1) Bipolar disorder (2) Anxiety disorder, unspecified (3) Dementia, vascular, with depression (4) Dementia, vascular, with delusions (5) Bipolar disorder, curr episode mixed, severe, with psychotic features (6) Vascular dementia of acute onset with behavioral disturbance (7) Major neurocognitive disorder, due to vascular disease, with behavioral disturbance, mild GARFIELD BELTRAN MD Jun 18, 2020 20:51
[2020-06-18] MEDS ORDERED: OLANZapine 5 MG TABLET PO SCH (21:00)
--- NOTE | 2020-06-19 02:14 | NUR ---
Nursing Note The patient was withdrawn but compliant this shift. The patient took her medication whole. The patient remained in bed this shift. The patient respond to name but due to language barrier the patient has difficulty answering assessment questions.
[2020-06-19] MEDS: LEVOTHYROXINE 75 MCG TABLET PO SCH (05:33)
[2020-06-19 06:13] VITALS: BP 142/77
--- NOTE | 2020-06-19 08:15 | PDOC ---
Exam Note: Donn Note: This note is a late entry for 06/18/2020 covers elements not covered in my initial note. Subjective: The patient was reviewed on telehealth rounds in the evening of 06/18/2020 with Mariel CORLEY. Discussed with nursing staff, reviewed the chart. The patient slept for 7-3/4 hours previous night. She is doing reasonably well, less paranoid. She has had a conversation as her family today again was going to have a video-conference with them at 8 p.m. Review of Systems: Positive for back pain, knee pain which she states hurts. No CV, , pulmonary, eye, ENT system symptoms on review. Mental Status Exam: The patient is oriented to herself and situation. Speech has some latency. Often response is monosyllabic. Abstraction is fair. Computation is impaired. Language function is intact. Mood and affect somewhat withdrawn. No psychotic symptoms, suicidal or homicidal ideation. Laboratory Data: Reviewed. Impression: Bipolar 1 disorder depressed with psychotic features. 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 Anxiety disorder unspecified. Plan: No change from initial note. We will adjust her Risperdal as clinically indicated. Continue Ativan along with Zyprexa which is being tapered and Lamictal which is being gradually increased. Assessment: Vital Signs/I&O: Vital Signs Date Time Temp Pulse Resp B/P (MAP) Pulse Ox O2 Delivery O2 Flow Rate FiO2 06/19/20 06:13 97.7 94 16 142/77 (98) 97 Room Air I & O 06/18/20 06/18/20 06/19/20 15:00 23:00 07:00 Intake Total 600 ml 360 ml Balance 600 ml 360 ml Current Medications: Meds: Current Medications Medications (Trade) Dose Ordered Sig/Jules Route PRN Reason Start Time Stop Time Status Last Admin Dose Admin Lamotrigine (LaMICtal) 50 mg QHS PO 06/18/20 21:00 06/18/20 20:38 Olanzapine (ZyPREXA) 5 mg QHS PO 06/18/20 21:00 06/18/20 20:38 I have reviewed the current psychotropics carefully including drug interactions. Risk benefit ratio favors no change other than as noted in my dictated progress note. Diagnosis: Problems: (1) Bipolar disorder (2) Anxiety disorder, unspecified (3) Dementia, vascular, with depression (4) Dementia, vascular, with delusions (5) Bipolar disorder, curr episode mixed, severe, with psychotic features (6) Vascular dementia of acute onset with behavioral disturbance (7) Major neurocognitive disorder, due to vascular disease, with behavioral disturbance, mild GARFIELD BELTRAN MD Jun 19, 2020 08:15
[2020-06-19] MEDS: DORZOLAMIDE/TIMOLOL 2%/0.5% OPHTH SOLUTION 10ML BOTTLE. OU SCH ×2 (10:16→20:07)
[2020-06-19] MEDS: LORazepam 0.5 MG TABLET PO SCH ×3 (10:17→20:13)
--- NOTE | 2020-06-19 15:05 | NUR ---
Nursing note: Pt sleeping in her bed at time of AM med pass and assessment. She awoke easily and was med compliant and cooperative. Pt does not appear to be in any pain or discomfort. Pt has remained in her room for the entire shift so far, but did have a good phone conversation with her daughter this morning. She is currently sitting quietly in her room. Will continue to monitor.
[2020-06-19 16:05] VITALS: BP 129/84
[2020-06-19] MEDS: OLANZapine 10 MG TABLET PO SCH (20:06)
[2020-06-19] MEDS: risperiDONE 0.25 MG TABLET. PO SCH (20:06)
[2020-06-19] MEDS: lamoTRIgine 25 MG TABLET. PO SCH (20:06)
--- NOTE | 2020-06-19 21:03 | PDOC ---
Exam Note: Donn Note: Please also refer to the separate dictated note~for this date of service dictated separately.~Patient seen individually. Discussed the patient with Nursing staff reviewed the chart.~Reviewed interim history and current functioning. Reviewed vital signs,~Labs/ Radiology~and current medications noted below. Continue current treatment with the changes noted in the dictated addendum note Assessment: Vital Signs/I&O: Vital Signs Date Time Temp Pulse Resp B/P (MAP) Pulse Ox O2 Delivery O2 Flow Rate FiO2 06/19/20 16:05 98.0 91 20 129/84 (99) 95 06/19/20 06:13 Room Air I & O 06/18/20 06/18/20 06/19/20 15:00 23:00 07:00 Intake Total 600 ml 360 ml Balance 600 ml 360 ml Current Medications: I have reviewed the current psychotropics carefully including drug interactions. Risk benefit ratio favors no change other than as noted in my dictated progress note. Diagnosis: Problems: (1) Bipolar disorder (2) Anxiety disorder, unspecified (3) Dementia, vascular, with depression (4) Dementia, vascular, with delusions (5) Bipolar disorder, curr episode mixed, severe, with psychotic features (6) Vascular dementia of acute onset with behavioral disturbance (7) Major neurocognitive disorder, due to vascular disease, with behavioral disturbance, mild GARFIELD BELTRAN MD Jun 19, 2020 21:03
--- NOTE | 2020-06-20 04:01 | NUR ---
Nursing Note The patient was calm and withdrawn this shift. The patient remained in bed for the entirety of this shift. The patient took her medications whole. The patient is unable to answer her assessment questions due to language barrier.
[2020-06-20] MEDS: LEVOTHYROXINE 75 MCG TABLET PO SCH (05:46)
[2020-06-20 06:43] VITALS: BP 137/83
--- NOTE | 2020-06-20 07:47 | PDOC ---
Exam Note: Donn Note: This note is a late entry for 06/19/2020 covers elements not covered in my initial note. Subjective: The patient was reviewed on telehealth rounds in the evening of 06/19/2020 with Maddie CORLEY. Discussed with nursing staff, reviewed the chart. The patient slept for 8-3/4 hours previous night. She has been somewhat withdrawn but otherwise pleasant. Her family has talked to her twice today but we have not had feedback from the family on the extent of the patients psychosis evident to them during their conversations. We will await for this. Nursing staff will call on this. Review of Systems: No CV, , pulmonary, eye, ENT system symptoms on review. Mental Status Exam: The patient is oriented to herself and situation. She is quite pleasant, interactive, smiling at times, referring to me as Doctor seems of aware of this. Speech has some latency. Often response is monosyllabic. Abstraction is fair. Computation is impaired. Language function is intact. Mood and affect seems less paranoid. No psychotic symptoms, suicidal or homicidal ideation. Laboratory Data: Reviewed. Impression: Bipolar 1 disorder depressed with psychotic features. 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 Anxiety disorder unspecified. Plan: No change from initial note. We are tapering with a plan to stop the Zyprexa. We have initiated Risperdal 0.5 mg h.s. increasing the Lamictal gradually. Maintain Ativan p.r.n. Adjust further as clinically indicated. Assessment: Vital Signs/I&O: Vital Signs Date Time Temp Pulse Resp B/P (MAP) Pulse Ox O2 Delivery O2 Flow Rate FiO2 06/20/20 06:43 97.6 97 16 137/83 (101) 94 06/19/20 06:13 Room Air I & O 06/19/20 06/19/20 06/20/20 14:59 22:59 06:59 Intake Total 240 ml 360 ml Balance 240 ml 360 ml Current Medications: I have reviewed the current psychotropics carefully including drug interactions. Risk benefit ratio favors no change other than as noted in my dictated progress note. Diagnosis: Problems: (1) Anxiety disorder, unspecified (2) Dementia, vascular, with depression (3) Dementia, vascular, with delusions (4) Bipolar disorder, curr episode mixed, severe, with psychotic features (5) Vascular dementia of acute onset with behavioral disturbance (6) Major neurocognitive disorder, due to vascular disease, with behavioral disturbance, mild GARFIELD BELTRAN MD Jun 20, 2020 07:47
[2020-06-20] MEDS: LORazepam 0.5 MG TABLET PO SCH ×3 (08:02→20:24)
[2020-06-20] MEDS: DORZOLAMIDE/TIMOLOL 2%/0.5% OPHTH SOLUTION 10ML BOTTLE. OU SCH ×2 (08:02→20:24)
[2020-06-20 15:21] VITALS: BP 130/76
--- NOTE | 2020-06-20 17:52 | NUR ---
Patient is calm and cooperative with no complaints. Hard to do assessment due to language barrier. Patient is definitely up more today and is doing more activity. Called daughter and asked her what she can do with out the nurse and I had the daughter let her know she is able to come out of her room with her mask on and with her walker if she needs it. As long as she is not feeling dizzy and is able to safely walk , go to the restroom etc, she was able to. I also gave the patient coloring sheets for something to do. I spoke to daughter and she said that the patient is definitely less confused and starting to sound back to her usual self in the last 2 days of talking to her. Passed on to Dr Gee and was pleased to hear that she was starting to sound back to how she was prior to incident that brought her here. There are no further concerns or complaints at this time.
[2020-06-20] MEDS: lamoTRIgine 25 MG TABLET. PO SCH (20:21)
[2020-06-20] MEDS: risperiDONE 0.25 MG TABLET. PO SCH (20:22)
[2020-06-20] MEDS ORDERED: OLANZapine 2.5 MG TABLET PO SCH (21:00)
--- NOTE | 2020-06-20 21:10 | PDOC ---
Exam Note: Donn Note: Please also refer to the separate dictated note~for this date of service dictated separately.~Patient seen individually. Discussed the patient with Nursing staff reviewed the chart.~Reviewed interim history and current functioning. Reviewed vital signs,~Labs/ Radiology~and current medications noted below. Continue current treatment with the changes noted in the dictated addendum note Assessment: Vital Signs/I&O: Vital Signs Date Time Temp Pulse Resp B/P (MAP) Pulse Ox O2 Delivery O2 Flow Rate FiO2 06/20/20 15:21 97.7 82 18 130/76 (94) 96 06/19/20 06:13 Room Air I & O 06/19/20 06/19/20 06/20/20 15:00 23:00 07:00 Intake Total 240 ml 360 ml Balance 240 ml 360 ml Current Medications: Meds: Current Medications Medications (Trade) Dose Ordered Sig/Jules Route PRN Reason Start Time Stop Time Status Last Admin Dose Admin Olanzapine (ZyPREXA) 5 mg QHS PO 06/20/20 21:00 06/21/20 09:00 06/20/20 20:24 I have reviewed the current psychotropics carefully including drug interactions. Risk benefit ratio favors no change other than as noted in my dictated progress note. Diagnosis: Problems: (1) Anxiety disorder, unspecified (2) Dementia, vascular, with depression (3) Dementia, vascular, with delusions (4) Bipolar disorder, curr episode mixed, severe, with psychotic features (5) Vascular dementia of acute onset with behavioral disturbance (6) Major neurocognitive disorder, due to vascular disease, with behavioral disturbance, mild GARFIELD BELTRAN MD Jun 20, 2020 21:10
[2020-06-21] MEDS: LEVOTHYROXINE 75 MCG TABLET PO SCH (05:12)
[2020-06-21 05:59] VITALS: BP 148/86
[2020-06-21] MEDS: DORZOLAMIDE/TIMOLOL 2%/0.5% OPHTH SOLUTION 10ML BOTTLE. OU SCH ×2 (08:11→20:55)
[2020-06-21] MEDS: LORazepam 0.5 MG TABLET PO SCH ×3 (08:11→20:55)
[2020-06-21 16:01] VITALS: BP 124/82
--- NOTE | 2020-06-21 17:35 | NUR ---
Nursing note: Pt has remained in her room for most of the shift, but did come out to the day room to participate in group this afternoon. Pt has been pleasant all day and had a good phone call with her daughter. Will continue to monitor and report to oncoming shift.
[2020-06-21] MEDS: risperiDONE 0.25 MG TABLET. PO SCH (20:55)
[2020-06-21] MEDS: lamoTRIgine 25 MG TABLET. PO SCH (20:55)
--- NOTE | 2020-06-21 20:57 | PDOC ---
Exam Note: Donn Note: This note is a late entry for 06/20/2020 covers elements not covered in my initial note. Subjective: The patient was reviewed on telehealth rounds in the evening of 06/20/2020 with Nevin CORLEY. Discussed with nursing staff, reviewed the chart. The patient slept for 7-1/2 hours previous night. Per nursing report, the patient is doing a little better. She has had a telephone conversation with her daughter and the daughter shared with staff that the patient seemed to be doing better, less psychotic, less confused. She was questioning the daughter to share with her expectations of the nursing staff and what they wanted her to do and some of this was quite appropriate according to the daughter. Review of Systems: No CV, , pulmonary, eye, ENT system symptoms on review. Ambulation impaired with walker. Mental Status Exam: The patient is oriented to herself and situation. She talks preferentially Greenlandic difficult to communicate with her. Speech is coherent, somewhat more animated, referring to me as doctor. Abstraction is fair. Computation is impaired. Language function is intact. Attention span is short. Mood and affect withdrawn at times. Laboratory Data: Reviewed. Impression: Bipolar 1 disorder depressed with psychotic features. 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 Anxiety disorder unspecified. Plan: No change from initial note. We are tapering and stopping the Zyprexa. Ativan will be tapered. She remains on Risperdal. Lamictal is being increased. Adjust further as clinically indicated. Assessment: Vital Signs/I&O: Vital Signs Date Time Temp Pulse Resp B/P (MAP) Pulse Ox O2 Delivery O2 Flow Rate FiO2 06/21/20 16:01 97.8 94 18 124/82 (96) 96 06/19/20 06:13 Room Air I & O 06/20/20 06/20/20 06/21/20 14:59 22:59 06:59 Intake Total 900 ml 480 ml Balance 900 ml 480 ml Current Medications: Meds: Current Medications Medications (Trade) Dose Ordered Sig/Jules Route PRN Reason Start Time Stop Time Status Last Admin Dose Admin Olanzapine (ZyPREXA) 5 mg QHS PO 06/20/20 21:00 06/21/20 09:00 DC 06/20/20 20:24 I have reviewed the current psychotropics carefully including drug interactions. Risk benefit ratio favors no change other than as noted in my dictated progress note. Diagnosis: Problems: (1) Anxiety disorder, unspecified (2) Dementia, vascular, with depression (3) Dementia, vascular, with delusions (4) Bipolar disorder, curr episode mixed, severe, with psychotic features (5) Vascular dementia of acute onset with behavioral disturbance (6) Major neurocognitive disorder, due to vascular disease, with behavioral disturbance, mild GARFIELD BELTRAN MD Jun 21, 2020 20:57
--- NOTE | 2020-06-21 21:19 | PDOC ---
Exam Note: Donn Note: Please also refer to the separate dictated note~for this date of service dictated separately.~Patient seen individually. Discussed the patient with Nursing staff reviewed the chart.~Reviewed interim history and current functioning. Reviewed vital signs,~Labs/ Radiology~and current medications noted below. Continue current treatment with the changes noted in the dictated addendum note Assessment: Vital Signs/I&O: Vital Signs Date Time Temp Pulse Resp B/P (MAP) Pulse Ox O2 Delivery O2 Flow Rate FiO2 06/21/20 16:01 97.8 94 18 124/82 (96) 96 06/19/20 06:13 Room Air I & O 06/20/20 06/20/20 06/21/20 15:00 23:00 07:00 Intake Total 900 ml 480 ml Balance 900 ml 480 ml Current Medications: I have reviewed the current psychotropics carefully including drug interactions. Risk benefit ratio favors no change other than as noted in my dictated progress note. Diagnosis: Problems: (1) Anxiety disorder, unspecified (2) Dementia, vascular, with depression (3) Dementia, vascular, with delusions (4) Bipolar disorder, curr episode mixed, severe, with psychotic features (5) Vascular dementia of acute onset with behavioral disturbance (6) Major neurocognitive disorder, due to vascular disease, with behavioral disturbance, mild GARFIELD BELTRAN MD Jun 21, 2020 21:19
--- NOTE | 2020-06-21 22:04 | PDOC ---
Exam Note: Donn Note: Please also refer to the separate dictated note~for this date of service dictated separately.~Patient seen individually. Discussed the patient with Nursing staff reviewed the chart.~Reviewed interim history and current functioning. Reviewed vital signs,~Labs/ Radiology~and current medications noted below. Continue current treatment with the changes noted in the dictated addendum note Assessment: Vital Signs/I&O: Current Medications Medications (Trade) Dose Ordered Sig/Jules Route PRN Reason Start Time Stop Time Status Last Admin Dose Admin Dorzolamide/ Timolol (Cosopt) 1 drop BID OU 06/13/20 21:00 06/21/20 20:55 Levothyroxine Sodium (Synthroid) 75 mcg DAILY06 PO 06/14/20 06:00 06/21/20 05:12 Lorazepam (Ativan) 0.5 mg TID PO 06/13/20 21:00 06/15/20 17:07 DC 06/15/20 14:00 Olanzapine (ZyPREXA) 15 mg QHS PO 06/13/20 21:00 06/15/20 17:07 DC 06/14/20 19:37 Hydrochlorothiazide (Microzide) 12.5 mg DAILY PO 06/14/20 09:00 06/17/20 11:06 DC 06/17/20 09:45 Acetaminophen (Tylenol) 650 mg PRN Q6HRS PRN PO MILD PAIN / TEMP > 100.3'F 06/13/20 19:30 06/18/20 16:30 Multi-Ingredient Ointment (Analgesic [place]) 1 lia PRN QID PRN TP MUSCLE PAIN 06/13/20 19:30 06/18/20 16:30 Al Hydroxide/Mg Hydroxide (Mylanta Plus Xs) 15 ml PRN AFTMEALHC PRN PO DYSPEPSIA 06/13/20 19:30 Magnesium Hydroxide (Milk Of Magnesia) 2,400 mg PRN QHS PRN PO CONSTIPATION 06/13/20 19:30 Lorazepam (Ativan) 0.25 mg BID PO 06/16/20 09:00 06/15/20 19:54 DC Olanzapine (ZyPREXA) 10 mg QHS PO 06/15/20 21:00 06/20/20 09:00 DC 06/19/20 20:06 Lamotrigine (LaMICtal) 25 mg QHS PO 06/15/20 21:00 06/17/20 23:00 DC 06/17/20 20:24 Lamotrigine (LaMICtal) 50 mg QHS PO 06/18/20 21:00 06/23/20 09:00 06/21/20 20:55 Olanzapine (ZyPREXA) 5 mg QHS PO 06/18/20 21:00 06/19/20 17:39 DC 06/18/20 20:38 Lorazepam (Ativan) 0.25 mg BID92 PO 06/16/20 09:00 06/21/20 14:21 Lorazepam (Ativan) 0.5 mg HS PO 06/15/20 21:00 06/21/20 20:55 Risperidone (RisperDAL) 0.5 mg QHS PO 06/17/20 22:45 06/21/20 20:55 Olanzapine (ZyPREXA) 5 mg QHS PO 06/20/20 21:00 06/21/20 09:00 DC 06/20/20 20:24 Lamotrigine (LaMICtal) 75 mg QHS PO 06/23/20 21:00 Vital Signs Date Time Temp Pulse Resp B/P (MAP) Pulse Ox O2 Delivery O2 Flow Rate FiO2 06/21/20 16:01 97.8 94 18 124/82 (96) 96 06/19/20 06:13 Room Air I & O 06/20/20 06/20/20 06/21/20 15:00 23:00 07:00 Intake Total 900 ml 480 ml Balance 900 ml 480 ml Current Medications: I have reviewed the current psychotropics carefully including drug interactions. Risk benefit ratio favors no change other than as noted in my dictated progress note. Diagnosis: Problems: (1) Bipolar disorder (2) Anxiety disorder, unspecified (3) Dementia, vascular, with depression (4) Dementia, vascular, with delusions (5) Bipolar disorder, curr episode mixed, severe, with psychotic features (6) Vascular dementia of acute onset with behavioral disturbance (7) Major neurocognitive disorder, due to vascular disease, with behavioral disturbance, mild RUBY,GARFIELD Slater MD Jun 21, 2020 22:04
--- NOTE | 2020-06-22 01:49 | NUR ---
Location of Patient during Assessment: Pt was in her bed sleeping. Behaviors Mood and Affect this shift: She is drowsy and pleasant. Medication Compliant: Meds taken whole Assessment Compliant: Cooperative with staff. Response After Interventions: She has been sleeping.
[2020-06-22] MEDS: LEVOTHYROXINE 75 MCG TABLET PO SCH (05:57)
[2020-06-22 06:41] VITALS: BP 140/81
--- NOTE | 2020-06-22 10:34 | NUR ---
WEEKLY ACTIVITY THERAPY NOTE Date of Admission: 06/13 Date of AT Assessment: 06/14 Precipitating behaviors that initiated intake and admission: nervous, "out of control,"paranoid, hallucinating, nonsensical speech Goal aimed: to increase stimulation Initial Goal: Pt. will participate in at least five individual Activity Therapy Sessions before discharge. Weekly progress towards goal: 0/5, 1 group Group participation level: 1 mod in group Weekly highlights: colored and complimented decorations on Friday afternoon Behaviors observed: more alert and seems to understand/ process current situation better Plan: no change to goal at this time, potentially change goal to adding group involvement Beneficial adaptations: Croatian music
[2020-06-22] MEDS: DORZOLAMIDE/TIMOLOL 2%/0.5% OPHTH SOLUTION 10ML BOTTLE. OU SCH ×2 (10:39→20:23)
[2020-06-22] MEDS: LORazepam 0.5 MG TABLET PO SCH ×3 (10:40→20:23)
--- NOTE | 2020-06-22 12:46 | TX PLAN ---
Interdisciplinary Tx Plan Admission Information Jun 13, 2020 at 16:00 Legal Status (on Admission): Voluntary, DPOA DPOA/Guardian Name: Elva Johnson- daughter Contact Other Contact Name: Bart Everett Verified Code Status: Full Code Allergies: Coded Allergies: No Known Drug Allergies (Unverified , 06/13/20) Estimated Length of Stay: 14 Diagnoses Primary Diagnosis: Bipolar d/o with psychotic features Reasons for Admission: Delusions, Depressed, Sig. Change Appetite, Anxiety/Panic, Suspicious/paranoid, Confusion/Disoriented, Isolating Problem in Patient's Words: DPOA reports that Lesly's mood and cognition began to decline about 6 weeks ago when Lesly's spouse started chemo treatments. Her mood progressively worsened to where she was not eating or drinking so family took her to [facility]. Additional Admission Comments: Per intake record, hallucinating, increasingly depressed and anxious, having nonsensical speech, catatonic posturing, staring/rocking in a chair, poor intake of foods and fluids, and ruminating. Problems Active Problems: poor intake of meals and fluids paranoia confusion, disorientation nonsensical speech catatonic episodes Inactive Problems: slept 7.5 hours last night medication compliant Pt Strengths/Limitations Ability for [place]: Poor Cognitive Functioning/Ability: Fair Communication Skills/Ability: Fair Financial Resources: Fair Insight/Judgement: Poor Intellectual Ability: Fair Physical Health: Fair Social Skills: Fair Stability in Family: Good Verbal Skills: Fair Discharge Criteria Discharge Criteria: Adequate arrangements @DC, Improved behavior, Improved mood/thought Preliminary Discharge Plan Preliminary DC Plan: Home Special Precautions Fall Risk: High Initial D/C Plan Home with spouse, daugthers assist with care giving. Identified Discharge Needs: Follow up with PCP and Psychiatrist Currently Utilized Resources Currently Utilized Resources/P: PCP Out patient psychiatry Identified Problems/Hx/Goals Objectives/Short-Term Goals Short Term Goals: Control abnormal behavior, Dec. Anxiety/Panic, Decrease Tinnie tion, Dec. Symp. Depression, Medication Stabilization, Monitor Med Effects, Prevent Deterioration Short Term Goals in Patient's: Per POA, for Lesly to return to baseline, eating/drinking adequate amounts, laughing, and socializing with family. Interventions/Frequency Staff Interventions/Frequency&: Nursing provides routine safety checks, medication administration, and adl support. Psychiatry visits three times weekly. SW visits twice weekly. Recreational therapy groups as Lesly desires. 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 Social: Lesly enjoys looking at magazines, [place] music, and walking. Education: Lesly attended school thru the third grade. Community Follow-up PCP Out patient psychiatry Community Provider/Family Inpu: wilbur Stevenson, participated in team meeting via phone on 06/15/20. Treatment Plan Explained Patient/Pharmacology Teacher had this treatment plan explained to him/her as indicated by the signature below and has been given the opportunity to ask questions and make suggestions: Date: Patient/Pharmacology Teacher Signature: Status Update Update WEEKLY NOTE/UPDATE: Lesly ia averaging 85% of meal intakes and 7.5 hours of sleep at night. She has been cooperative with medication administration and cares. Lesly's daugther, Elva, participated in team meeting via phone and reports that Lesly is sounding much more like herself on phone calls and is connecting more cognitively. Lesly attended a recreational therapy group yesterday in which she colored and listened to [place] music. Family is to discuss preferred d/c date to home and follow up with SW. GIUSEPPE [place] Jun 22, 2020 12:46
--- NOTE | 2020-06-22 13:50 | NUR ---
[facility] Social Work Discharge Planning Form Patient Name CONCEPCION MAC Admit Date: 06/13/2020 DISCHARGE PLAN Discharge Destination: Home with spouse Care Assessment: n/a Transportation: Family to transport on 06/24/20, burr picker time 1pm. Special Instructions/Notes: Upon return home, Jessica, will arrange follow up appointments with Concepcion's PCP and mental health provider. DISCHARGE TO HOME: Address: [address] [place] [id number] Responsible Green Party: Elva Johnson, daughter/POA, Pharmacy: [facility], Psychiatrist/Mental Health Follow Up: Lona Dahl, , (fax) Primary Care Follow Up: Dr. Sylvester, , (fax)
[2020-06-22 15:49] VITALS: BP 132/70
--- NOTE | 2020-06-22 15:58 | NUR ---
Nursing note: Pt has remained in her room for most of the shift, but did come out to the day room to participate in group and 's Shelley festivities. She has been med compliant and cooperative. Pt seems much less confused today and is able to understand Khmer a bit better, providing for a little better communication than before. She is currently sitting quietly in her room. Will continue to monitor.
[2020-06-22] MEDS: lamoTRIgine 25 MG TABLET. PO SCH (20:21)
[2020-06-22] MEDS: risperiDONE 0.25 MG TABLET. PO SCH (20:22)
--- NOTE | 2020-06-22 21:10 | PDOC ---
Exam Note: Donn Note: Please also refer to the separate dictated note~for this date of service dictated separately.~Patient seen individually. Discussed the patient with Nursing staff reviewed the chart.~Reviewed interim history and current functioning. Reviewed vital signs,~Labs/ Radiology~and current medications noted below. Continue current treatment with the changes noted in the dictated addendum note Assessment: Vital Signs/I&O: Vital Signs Date Time Temp Pulse Resp B/P (MAP) Pulse Ox O2 Delivery O2 Flow Rate FiO2 06/22/20 15:49 97.6 84 18 132/70 (90) 97 Room Air I & O 06/21/20 06/21/20 06/22/20 15:00 23:00 07:00 Intake Total 840 ml 340 ml Balance 840 ml 340 ml Current Medications: Meds: Current Medications Medications (Trade) Dose Ordered Sig/Jules Route PRN Reason Start Time Stop Time Status Last Admin Dose Admin Dorzolamide/ Timolol (Cosopt) 1 drop BID OU 06/13/20 21:00 06/22/20 20:23 Levothyroxine Sodium (Synthroid) 75 mcg DAILY06 PO 06/14/20 06:00 06/22/20 05:57 Lorazepam (Ativan) 0.5 mg TID PO 06/13/20 21:00 06/15/20 17:07 DC 06/15/20 14:00 Olanzapine (ZyPREXA) 15 mg QHS PO 06/13/20 21:00 06/15/20 17:07 DC 06/14/20 19:37 Hydrochlorothiazide (Microzide) 12.5 mg DAILY PO 06/14/20 09:00 06/17/20 11:06 DC 06/17/20 09:45 Acetaminophen (Tylenol) 650 mg PRN Q6HRS PRN PO MILD PAIN / TEMP > 100.3'F 06/13/20 19:30 06/18/20 16:30 Multi-Ingredient Ointment (Analgesic [place]) 1 lia PRN QID PRN TP MUSCLE PAIN 06/13/20 19:30 06/18/20 16:30 Al Hydroxide/Mg Hydroxide (Mylanta Plus Xs) 15 ml PRN AFTMEALHC PRN PO DYSPEPSIA 06/13/20 19:30 Magnesium Hydroxide (Milk Of Magnesia) 2,400 mg PRN QHS PRN PO CONSTIPATION 06/13/20 19:30 Lorazepam (Ativan) 0.25 mg BID PO 06/16/20 09:00 06/15/20 19:54 DC Olanzapine (ZyPREXA) 10 mg QHS PO 06/15/20 21:00 06/20/20 09:00 DC 06/19/20 20:06 Lamotrigine (LaMICtal) 25 mg QHS PO 06/15/20 21:00 06/17/20 23:00 DC 06/17/20 20:24 Lamotrigine (LaMICtal) 50 mg QHS PO 06/18/20 21:00 06/23/20 09:00 06/22/20 20:21 Olanzapine (ZyPREXA) 5 mg QHS PO 06/18/20 21:00 06/19/20 17:39 DC 06/18/20 20:38 Lorazepam (Ativan) 0.25 mg BID92 PO 06/16/20 09:00 06/22/20 14:43 Lorazepam (Ativan) 0.5 mg HS PO 06/15/20 21:00 06/22/20 20:23 Risperidone (RisperDAL) 0.5 mg QHS PO 06/17/20 22:45 06/22/20 20:22 Olanzapine (ZyPREXA) 5 mg QHS PO 06/20/20 21:00 06/21/20 09:00 DC 06/20/20 20:24 Lamotrigine (LaMICtal) 75 mg QHS PO 06/23/20 21:00 I have reviewed the current psychotropics carefully including drug interactions. Risk benefit ratio favors no change other than as noted in my dictated progress note. Diagnosis: Problems: (1) Anxiety disorder, unspecified (2) Dementia, vascular, with depression (3) Dementia, vascular, with delusions (4) Bipolar disorder, curr episode mixed, severe, with psychotic features (5) Vascular dementia of acute onset with behavioral disturbance (6) Major neurocognitive disorder, due to vascular disease, with behavioral disturbance, mild RUBY,GARFIELD Slater MD Jun 22, 2020 21:10
--- NOTE | 2020-06-22 22:17 | NUR ---
Nursing Note Pt is drowsy but awakens to take meds. Pleasant and cooperative. Seems to be able to speak in short sentences of Malay and understands. Compliant with meds and assessments.
[2020-06-23] MEDS: LEVOTHYROXINE 75 MCG TABLET PO SCH (06:19)
[2020-06-23 06:31] VITALS: BP 135/82
[2020-06-23 07:48] LABS: ALBUMIN 3.7 g/dL (3.4-5.0); CALCIUM 9.2 mg/dL (8.5-10.1); CREATININE 1.1 mg/dL (0.6-1.0); TOTAL BILIRUBIN 0.5 mg/dL (0.2-1.0); TOTAL PROTEIN 7.4 g/dL (6.4-8.2)
[2020-06-23 07:57] LABS: BASO % 1 % (0-3); EOS # 0.2 x10^3/uL (0.0-0.7); EOS % 4 % (0-3); HEMATOCRIT 40.2 % (36.0-47.0); HEMOGLOBIN 13.1 g/dL (12.0-15.5); LYMPH # 1.2 x10^3/uL (1.0-4.8); LYMPH % 19 % (24-48); MEAN CORPUSCULAR HEMOGLOBIN 32 pg (25-35); MEAN CORPUSCULAR HGB CONC 33 g/dL (31-37); MEAN CORPUSCULAR VOLUME 98 fL (79-100); MONO # 0.6 x10^3/uL (0.0-1.1); MONO % 9 % (0-9); NEUT # 4.4 x10^3uL (1.8-7.7); NEUT % 68 % (31-73); PLATELET COUNT 230 x10^3/uL (140-400); RED BLOOD COUNT 4.09 x10^6/uL (3.50-5.40); RED CELL DISTRIBUTION WIDTH 13.8 % (11.5-14.5); WHITE BLOOD COUNT 6.5 x10^3/uL (4.0-11.0)
[2020-06-23] MEDS: DORZOLAMIDE/TIMOLOL 2%/0.5% OPHTH SOLUTION 10ML BOTTLE. OU SCH ×2 (09:41→19:30)
[2020-06-23] MEDS: LORazepam 0.5 MG TABLET PO SCH ×3 (09:42→19:31)
[2020-06-23 15:10] VITALS: BP 141/72
--- NOTE | 2020-06-23 18:30 | NUR ---
Patient has been calm, compliant, and pleasant throughout this shift. She spent most of her time in her room, but did occasionally come out and sit in the hallway. Patient spoke Romanian almost exclusively, occasionally answering a question with a 'yes' or 'no'; generally she answered questions in Romanian when asked in Indonesian. Language barrier made orientation assessment undoable. Will continue to monitor and report to oncoming shift.
[2020-06-23] MEDS: risperiDONE 0.25 MG TABLET. PO SCH (19:30)
[2020-06-23] MEDS ORDERED: lamoTRIgine 25 MG TABLET. PO SCH (21:00)
--- NOTE | 2020-06-23 21:23 | PDOC ---
Exam Note: Donn Note: This note is a late entry for 06/21/2020 covers elements not covered in my initial note. Subjective: The patient was reviewed on telehealth rounds in the evening of 06/21/2020 with Maddie CORLEY. Discussed with nursing staff, reviewed the chart. The patient slept for 7-3/4 hours previous night. She has talked to her family including her daughter Elva and feedback from the family. The patient is doing better, seems more coherent, lucid in her conversations. It is somewhat difficult for us to assess this as well as the family can because of the language barrier with the patient. She has been attending music groups and coloring in groups as well. Review of Systems: No CV, , pulmonary, eye, ENT system symptoms on review. Ambulation impaired with walker. Mental Status Exam: The patient is oriented to herself and situation. She is pleasant, seemed to respond appropriately when I mentioned about her daughter Elva, little more coherent even with the language barrier being problematic. Abstraction is fair. Computation is impaired. Language function is intact. Attention span is short. Mood and affect withdrawn. Laboratory Data: Reviewed. Impression: Bipolar 1 disorder depressed with psychotic features. 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 Anxiety disorder unspecified. Plan: No change from initial note. Maintain psychotropics from initial note. After she has been on Lamictal 50 mg h.s. for 5 days, we will make it 75 mg h.s. We are tapering and stopping the Zyprexa. Continue Risperdal 0.5 mg h.s. Ativan has been reduced. Adjust further as clinically indicated. Assessment: Vital Signs/I&O: VS - Last 72 Hours, by Label Date Time Temp Pulse Resp B/P (MAP) Pulse Ox O2 Delivery O2 Flow Rate FiO2 06/23/20 15:10 97.0 80 16 141/72 (95) 95 06/23/20 06:31 97.5 85 17 135/82 (99) 96 Room Air 06/22/20 15:49 97.6 84 18 132/70 (90) 97 Room Air 06/22/20 06:41 97.8 86 17 140/81 (100) 98 Room Air 06/21/20 16:01 97.8 94 18 124/82 (96) 96 06/21/20 05:59 97.6 104 18 148/86 (106) 97 Vital Signs Date Time Temp Pulse Resp B/P (MAP) Pulse Ox O2 Delivery O2 Flow Rate FiO2 06/23/20 15:10 97.0 80 16 141/72 (95) 95 06/23/20 06:31 Room Air I & O 06/22/20 06/22/20 06/23/20 14:59 22:59 06:59 Intake Total 480 ml 120 ml Balance 480 ml 120 ml Labs: Laboratory Tests Test 06/23/20 06:35 White Blood Count 6.5 x10^3/uL (4.0-11.0) Red Blood Count 4.09 x10^6/uL (3.50-5.40) Hemoglobin 13.1 g/dL (12.0-15.5) Hematocrit 40.2 % (36.0-47.0) Mean Corpuscular Volume 98 fL (79-100) Mean Corpuscular Hemoglobin 32 pg (25-35) Mean Corpuscular Hemoglobin Concent 33 g/dL (31-37) Red Cell Distribution Width 13.8 % (11.5-14.5) Platelet Count 230 x10^3/uL (140-400) Neutrophils (%) (Auto) 68 % (31-73) Lymphocytes (%) (Auto) 19 % (24-48) L Monocytes (%) (Auto) 9 % (0-9) Eosinophils (%) (Auto) 4 % (0-3) H Basophils (%) (Auto) 1 % (0-3) Neutrophils # (Auto) 4.4 x10^3uL (1.8-7.7) Lymphocytes # (Auto) 1.2 x10^3/uL (1.0-4.8) Monocytes # (Auto) 0.6 x10^3/uL (0.0-1.1) Eosinophils # (Auto) 0.2 x10^3/uL (0.0-0.7) Basophils # (Auto) 0.0 x10^3/uL (0.0-0.2) Sodium Level 140 mmol/L (136-145) Potassium Level 4.0 mmol/L (3.5-5.1) Chloride Level 105 mmol/L (98-107) Carbon Dioxide Level 25 mmol/L (21-32) Anion Gap 10 (6-14) Blood Urea Nitrogen 34 mg/dL (7-20) H Creatinine 1.1 mg/dL (0.6-1.0) H Estimated GFR (Cockcroft-Gault) 48.0 BUN/Creatinine Ratio 31 (6-20) H Glucose Level 111 mg/dL (70-99) H Calcium Level 9.2 mg/dL (8.5-10.1) Total Bilirubin 0.5 mg/dL (0.2-1.0) Aspartate Amino Transferase (AST) 13 U/L (15-37) L Alanine Aminotransferase (ALT) 39 U/L (14-59) Alkaline Phosphatase 75 U/L (46-116) Total Protein 7.4 g/dL (6.4-8.2) Albumin 3.7 g/dL (3.4-5.0) Albumin/Globulin Ratio 1.0 (1.0-1.7) Current Medications: Meds: Laboratory Tests Test 06/23/20 06:35 White Blood Count 6.5 x10^3/uL Red Blood Count 4.09 x10^6/uL Hemoglobin 13.1 g/dL Hematocrit 40.2 % Mean Corpuscular Volume 98 fL Mean Corpuscular Hemoglobin 32 pg Mean Corpuscular Hemoglobin Concent 33 g/dL Red Cell Distribution Width 13.8 % Platelet Count 230 x10^3/uL Neutrophils (%) (Auto) 68 % Lymphocytes (%) (Auto) 19 % Monocytes (%) (Auto) 9 % Eosinophils (%) (Auto) 4 % Basophils (%) (Auto) 1 % Neutrophils # (Auto) 4.4 x10^3uL Lymphocytes # (Auto) 1.2 x10^3/uL Monocytes # (Auto) 0.6 x10^3/uL Eosinophils # (Auto) 0.2 x10^3/uL Basophils # (Auto) 0.0 x10^3/uL Sodium Level 140 mmol/L Potassium Level 4.0 mmol/L Chloride Level 105 mmol/L Carbon Dioxide Level 25 mmol/L Anion Gap 10 Blood Urea Nitrogen 34 mg/dL Creatinine 1.1 mg/dL Estimated GFR (Cockcroft-Gault) 48.0 BUN/Creatinine Ratio 31 Glucose Level 111 mg/dL Calcium Level 9.2 mg/dL Total Bilirubin 0.5 mg/dL Aspartate Amino Transf (AST/SGOT) 13 U/L Alanine Aminotransferase (ALT/SGPT) 39 U/L Alkaline Phosphatase 75 U/L Total Protein 7.4 g/dL Albumin 3.7 g/dL Albumin/Globulin Ratio 1.0 Current Medications Medications (Trade) Dose Ordered Sig/Jules Route PRN Reason Start Time Stop Time Status Last Admin Dose Admin Dorzolamide/ Timolol (Cosopt) 1 drop BID OU 06/13/20 21:00 06/23/20 19:30 Levothyroxine Sodium (Synthroid) 75 mcg DAILY06 PO 06/14/20 06:00 06/23/20 06:19 Lorazepam (Ativan) 0.5 mg TID PO 06/13/20 21:00 06/15/20 17:07 DC 06/15/20 14:00 Olanzapine (ZyPREXA) 15 mg QHS PO 06/13/20 21:00 06/15/20 17:07 DC 06/14/20 19:37 Hydrochlorothiazide (Microzide) 12.5 mg DAILY PO 06/14/20 09:00 06/17/20 11:06 DC 06/17/20 09:45 Acetaminophen (Tylenol) 650 mg PRN Q6HRS PRN PO MILD PAIN / TEMP > 100.3'F 06/13/20 19:30 06/18/20 16:30 Multi-Ingredient Ointment (Analgesic [place]) 1 lia PRN QID PRN TP MUSCLE PAIN 06/13/20 19:30 06/18/20 16:30 Al Hydroxide/Mg Hydroxide (Mylanta Plus Xs) 15 ml PRN AFTMEALHC PRN PO DYSPEPSIA 06/13/20 19:30 Magnesium Hydroxide (Milk Of Magnesia) 2,400 mg PRN QHS PRN PO CONSTIPATION 06/13/20 19:30 Lorazepam (Ativan) 0.25 mg BID PO 06/16/20 09:00 06/15/20 19:54 DC Olanzapine (ZyPREXA) 10 mg QHS PO 06/15/20 21:00 06/20/20 09:00 DC 06/19/20 20:06 Lamotrigine (LaMICtal) 25 mg QHS PO 06/15/20 21:00 06/17/20 23:00 DC 06/17/20 20:24 Lamotrigine (LaMICtal) 50 mg QHS PO 06/18/20 21:00 06/23/20 09:00 DC 06/22/20 20:21 Olanzapine (ZyPREXA) 5 mg QHS PO 06/18/20 21:00 06/19/20 17:39 DC 06/18/20 20:38 Lorazepam (Ativan) 0.25 mg BID92 PO 06/16/20 09:00 06/23/20 14:11 Lorazepam (Ativan) 0.5 mg HS PO 06/15/20 21:00 06/23/20 19:31 Risperidone (RisperDAL) 0.5 mg QHS PO 06/17/20 22:45 06/23/20 19:30 Olanzapine (ZyPREXA) 5 mg QHS PO 06/20/20 21:00 06/21/20 09:00 DC 06/20/20 20:24 Lamotrigine (LaMICtal) 75 mg QHS PO 06/23/20 21:00 06/23/20 19:30 Current Medications Medications (Trade) Dose Ordered Sig/Jules Route PRN Reason Start Time Stop Time Status Last Admin Dose Admin Lamotrigine (LaMICtal) 75 mg QHS PO 06/23/20 21:00 06/23/20 19:30 I have reviewed the current psychotropics carefully including drug interactions. Risk benefit ratio favors no change other than as noted in my dictated progress note. Diagnosis: Problems: (1) Anxiety disorder, unspecified (2) Dementia, vascular, with depression (3) Dementia, vascular, with delusions (4) Bipolar disorder, curr episode mixed, severe, with psychotic features (5) Vascular dementia of acute onset with behavioral disturbance (6) Major neurocognitive disorder, due to vascular disease, with behavioral disturbance, mild GARFIELD BELTRAN MD Jun 23, 2020 21:23
--- NOTE | 2020-06-23 21:50 | PDOC ---
Exam Note: Donn Note: This note is a late entry for 06/22/2020 covers elements not covered in my initial note. Subjective: The patient was reviewed on telehealth rounds in the morning of 06/22/2020 for a treatment team meeting with Matilda Reynoso and Angeles (social director), Suze, activity therapy and Maddie CORLEY. Discussed with nursing staff, reviewed the chart. The patient slept for 8-3/4 hours previous night. The patients daughter Elva attended the meeting. Sleeping average is 7-1/2 hours. Appetite is 85%. She has been trying to converse more in Georgian. I also met her on telehealth rounds in the evening. Review of Systems: No CV, , pulmonary, eye, ENT system symptoms on review. Ambulation impaired with walker. Mental Status Exam: The patient is oriented to herself and situation. Speech is coherent. Often response is monosyllabic but little more appropriate. Abstraction is fair. Computation is impaired. Language function is intact. Attention span is short. Mood and affect improved. She was smiling as I met with her on telehealth rounds. Laboratory Data: Reviewed. Impression: Bipolar 1 disorder depressed with psychotic features. 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 Anxiety disorder unspecified. Plan: No change from initial note. After the meeting I had a telephone call from Dr. Slade as the daughter had contacted Dr. Slade about discharge plans. Family would like her discharged earlier rather than later given the fact of her language barrier and the fact that she is doing better with her psychosis. I discussed this with Dr. Slade and I am agreeable to transition home with outpatient treatment in the next day or two after we can ascertain stability in her psychosis. Assessment: Vital Signs/I&O: VS - Last 72 Hours, by Label Date Time Temp Pulse Resp B/P (MAP) Pulse Ox O2 Delivery O2 Flow Rate FiO2 06/23/20 15:10 97.0 80 16 141/72 (95) 95 06/23/20 06:31 97.5 85 17 135/82 (99) 96 Room Air 06/22/20 15:49 97.6 84 18 132/70 (90) 97 Room Air 06/22/20 06:41 97.8 86 17 140/81 (100) 98 Room Air 06/21/20 16:01 97.8 94 18 124/82 (96) 96 06/21/20 05:59 97.6 104 18 148/86 (106) 97 Vital Signs Date Time Temp Pulse Resp B/P (MAP) Pulse Ox O2 Delivery O2 Flow Rate FiO2 06/23/20 15:10 97.0 80 16 141/72 (95) 95 06/23/20 06:31 Room Air I & O 06/22/20 06/22/20 06/23/20 15:00 23:00 07:00 Intake Total 480 ml 120 ml Balance 480 ml 120 ml Labs: Laboratory Tests Test 06/23/20 06:35 White Blood Count 6.5 x10^3/uL (4.0-11.0) Red Blood Count 4.09 x10^6/uL (3.50-5.40) Hemoglobin 13.1 g/dL (12.0-15.5) Hematocrit 40.2 % (36.0-47.0) Mean Corpuscular Volume 98 fL (79-100) Mean Corpuscular Hemoglobin 32 pg (25-35) Mean Corpuscular Hemoglobin Concent 33 g/dL (31-37) Red Cell Distribution Width 13.8 % (11.5-14.5) Platelet Count 230 x10^3/uL (140-400) Neutrophils (%) (Auto) 68 % (31-73) Lymphocytes (%) (Auto) 19 % (24-48) L Monocytes (%) (Auto) 9 % (0-9) Eosinophils (%) (Auto) 4 % (0-3) H Basophils (%) (Auto) 1 % (0-3) Neutrophils # (Auto) 4.4 x10^3uL (1.8-7.7) Lymphocytes # (Auto) 1.2 x10^3/uL (1.0-4.8) Monocytes # (Auto) 0.6 x10^3/uL (0.0-1.1) Eosinophils # (Auto) 0.2 x10^3/uL (0.0-0.7) Basophils # (Auto) 0.0 x10^3/uL (0.0-0.2) Sodium Level 140 mmol/L (136-145) Potassium Level 4.0 mmol/L (3.5-5.1) Chloride Level 105 mmol/L (98-107) Carbon Dioxide Level 25 mmol/L (21-32) Anion Gap 10 (6-14) Blood Urea Nitrogen 34 mg/dL (7-20) H Creatinine 1.1 mg/dL (0.6-1.0) H Estimated GFR (Cockcroft-Gault) 48.0 BUN/Creatinine Ratio 31 (6-20) H Glucose Level 111 mg/dL (70-99) H Calcium Level 9.2 mg/dL (8.5-10.1) Total Bilirubin 0.5 mg/dL (0.2-1.0) Aspartate Amino Transferase (AST) 13 U/L (15-37) L Alanine Aminotransferase (ALT) 39 U/L (14-59) Alkaline Phosphatase 75 U/L (46-116) Total Protein 7.4 g/dL (6.4-8.2) Albumin 3.7 g/dL (3.4-5.0) Albumin/Globulin Ratio 1.0 (1.0-1.7) Current Medications: Meds: Laboratory Tests Test 06/23/20 06:35 White Blood Count 6.5 x10^3/uL Red Blood Count 4.09 x10^6/uL Hemoglobin 13.1 g/dL Hematocrit 40.2 % Mean Corpuscular Volume 98 fL Mean Corpuscular Hemoglobin 32 pg Mean Corpuscular Hemoglobin Concent 33 g/dL Red Cell Distribution Width 13.8 % Platelet Count 230 x10^3/uL Neutrophils (%) (Auto) 68 % Lymphocytes (%) (Auto) 19 % Monocytes (%) (Auto) 9 % Eosinophils (%) (Auto) 4 % Basophils (%) (Auto) 1 % Neutrophils # (Auto) 4.4 x10^3uL Lymphocytes # (Auto) 1.2 x10^3/uL Monocytes # (Auto) 0.6 x10^3/uL Eosinophils # (Auto) 0.2 x10^3/uL Basophils # (Auto) 0.0 x10^3/uL Sodium Level 140 mmol/L Potassium Level 4.0 mmol/L Chloride Level 105 mmol/L Carbon Dioxide Level 25 mmol/L Anion Gap 10 Blood Urea Nitrogen 34 mg/dL Creatinine 1.1 mg/dL Estimated GFR (Cockcroft-Gault) 48.0 BUN/Creatinine Ratio 31 Glucose Level 111 mg/dL Calcium Level 9.2 mg/dL Total Bilirubin 0.5 mg/dL Aspartate Amino Transf (AST/SGOT) 13 U/L Alanine Aminotransferase (ALT/SGPT) 39 U/L Alkaline Phosphatase 75 U/L Total Protein 7.4 g/dL Albumin 3.7 g/dL Albumin/Globulin Ratio 1.0 Current Medications Medications (Trade) Dose Ordered Sig/Jules Route PRN Reason Start Time Stop Time Status Last Admin Dose Admin Dorzolamide/ Timolol (Cosopt) 1 drop BID OU 06/13/20 21:00 06/23/20 19:30 Levothyroxine Sodium (Synthroid) 75 mcg DAILY06 PO 06/14/20 06:00 06/23/20 06:19 Lorazepam (Ativan) 0.5 mg TID PO 06/13/20 21:00 06/15/20 17:07 DC 06/15/20 14:00 Olanzapine (ZyPREXA) 15 mg QHS PO 06/13/20 21:00 06/15/20 17:07 DC 06/14/20 19:37 Hydrochlorothiazide (Microzide) 12.5 mg DAILY PO 06/14/20 09:00 06/17/20 11:06 DC 06/17/20 09:45 Acetaminophen (Tylenol) 650 mg PRN Q6HRS PRN PO MILD PAIN / TEMP > 100.3'F 06/13/20 19:30 06/18/20 16:30 Multi-Ingredient Ointment (Analgesic [place]) 1 lia PRN QID PRN TP MUSCLE PAIN 06/13/20 19:30 06/18/20 16:30 Al Hydroxide/Mg Hydroxide (Mylanta Plus Xs) 15 ml PRN AFTMEALHC PRN PO DYSPEPSIA 06/13/20 19:30 Magnesium Hydroxide (Milk Of Magnesia) 2,400 mg PRN QHS PRN PO CONSTIPATION 06/13/20 19:30 Lorazepam (Ativan) 0.25 mg BID PO 06/16/20 09:00 06/15/20 19:54 DC Olanzapine (ZyPREXA) 10 mg QHS PO 06/15/20 21:00 06/20/20 09:00 DC 06/19/20 20:06 Lamotrigine (LaMICtal) 25 mg QHS PO 06/15/20 21:00 06/17/20 23:00 DC 06/17/20 20:24 Lamotrigine (LaMICtal) 50 mg QHS PO 06/18/20 21:00 06/23/20 09:00 DC 06/22/20 20:21 Olanzapine (ZyPREXA) 5 mg QHS PO 06/18/20 21:00 06/19/20 17:39 DC 06/18/20 20:38 Lorazepam (Ativan) 0.25 mg BID92 PO 06/16/20 09:00 06/23/20 14:11 Lorazepam (Ativan) 0.5 mg HS PO 06/15/20 21:00 06/23/20 19:31 Risperidone (RisperDAL) 0.5 mg QHS PO 06/17/20 22:45 06/23/20 19:30 Olanzapine (ZyPREXA) 5 mg QHS PO 06/20/20 21:00 06/21/20 09:00 DC 06/20/20 20:24 Lamotrigine (LaMICtal) 75 mg QHS PO 06/23/20 21:00 06/23/20 19:30 Current Medications Medications (Trade) Dose Ordered Sig/Jules Route PRN Reason Start Time Stop Time Status Last Admin Dose Admin Lamotrigine (LaMICtal) 75 mg QHS PO 06/23/20 21:00 06/23/20 19:30 I have reviewed the current psychotropics carefully including drug interactions. Risk benefit ratio favors no change other than as noted in my dictated progress note. Diagnosis: Problems: (1) Anxiety disorder, unspecified (2) Dementia, vascular, with depression (3) Dementia, vascular, with delusions (4) Bipolar disorder, curr episode mixed, severe, with psychotic features (5) Vascular dementia of acute onset with behavioral disturbance (6) Major neurocognitive disorder, due to vascular disease, with behavioral disturbance, mild GARFIELD BELTRAN MD Jun 23, 2020 21:50
--- NOTE | 2020-06-23 22:02 | PDOC ---
Exam Note: Donn Note: Please also refer to the separate dictated note~for this date of service dictated separately.~Patient seen individually. Discussed the patient with Nursing staff reviewed the chart.~Reviewed interim history and current functioning. Reviewed vital signs,~Labs/ Radiology~and current medications noted below. Continue current treatment with the changes noted in the dictated addendum note Assessment: Vital Signs/I&O: Vital Signs Date Time Temp Pulse Resp B/P (MAP) Pulse Ox O2 Delivery O2 Flow Rate FiO2 06/23/20 15:10 97.0 80 16 141/72 (95) 95 06/23/20 06:31 Room Air I & O 06/22/20 06/22/20 06/23/20 15:00 23:00 07:00 Intake Total 480 ml 120 ml Balance 480 ml 120 ml Labs: Laboratory Tests Test 06/23/20 06:35 White Blood Count 6.5 x10^3/uL (4.0-11.0) Red Blood Count 4.09 x10^6/uL (3.50-5.40) Hemoglobin 13.1 g/dL (12.0-15.5) Hematocrit 40.2 % (36.0-47.0) Mean Corpuscular Volume 98 fL (79-100) Mean Corpuscular Hemoglobin 32 pg (25-35) Mean Corpuscular Hemoglobin Concent 33 g/dL (31-37) Red Cell Distribution Width 13.8 % (11.5-14.5) Platelet Count 230 x10^3/uL (140-400) Neutrophils (%) (Auto) 68 % (31-73) Lymphocytes (%) (Auto) 19 % (24-48) L Monocytes (%) (Auto) 9 % (0-9) Eosinophils (%) (Auto) 4 % (0-3) H Basophils (%) (Auto) 1 % (0-3) Neutrophils # (Auto) 4.4 x10^3uL (1.8-7.7) Lymphocytes # (Auto) 1.2 x10^3/uL (1.0-4.8) Monocytes # (Auto) 0.6 x10^3/uL (0.0-1.1) Eosinophils # (Auto) 0.2 x10^3/uL (0.0-0.7) Basophils # (Auto) 0.0 x10^3/uL (0.0-0.2) Sodium Level 140 mmol/L (136-145) Potassium Level 4.0 mmol/L (3.5-5.1) Chloride Level 105 mmol/L (98-107) Carbon Dioxide Level 25 mmol/L (21-32) Anion Gap 10 (6-14) Blood Urea Nitrogen 34 mg/dL (7-20) H Creatinine 1.1 mg/dL (0.6-1.0) H Estimated GFR (Cockcroft-Gault) 48.0 BUN/Creatinine Ratio 31 (6-20) H Glucose Level 111 mg/dL (70-99) H Calcium Level 9.2 mg/dL (8.5-10.1) Total Bilirubin 0.5 mg/dL (0.2-1.0) Aspartate Amino Transferase (AST) 13 U/L (15-37) L Alanine Aminotransferase (ALT) 39 U/L (14-59) Alkaline Phosphatase 75 U/L (46-116) Total Protein 7.4 g/dL (6.4-8.2) Albumin 3.7 g/dL (3.4-5.0) Albumin/Globulin Ratio 1.0 (1.0-1.7) Current Medications: Meds: Laboratory Tests Test 06/23/20 06:35 White Blood Count 6.5 x10^3/uL Red Blood Count 4.09 x10^6/uL Hemoglobin 13.1 g/dL Hematocrit 40.2 % Mean Corpuscular Volume 98 fL Mean Corpuscular Hemoglobin 32 pg Mean Corpuscular Hemoglobin Concent 33 g/dL Red Cell Distribution Width 13.8 % Platelet Count 230 x10^3/uL Neutrophils (%) (Auto) 68 % Lymphocytes (%) (Auto) 19 % Monocytes (%) (Auto) 9 % Eosinophils (%) (Auto) 4 % Basophils (%) (Auto) 1 % Neutrophils # (Auto) 4.4 x10^3uL Lymphocytes # (Auto) 1.2 x10^3/uL Monocytes # (Auto) 0.6 x10^3/uL Eosinophils # (Auto) 0.2 x10^3/uL Basophils # (Auto) 0.0 x10^3/uL Sodium Level 140 mmol/L Potassium Level 4.0 mmol/L Chloride Level 105 mmol/L Carbon Dioxide Level 25 mmol/L Anion Gap 10 Blood Urea Nitrogen 34 mg/dL Creatinine 1.1 mg/dL Estimated GFR (Cockcroft-Gault) 48.0 BUN/Creatinine Ratio 31 Glucose Level 111 mg/dL Calcium Level 9.2 mg/dL Total Bilirubin 0.5 mg/dL Aspartate Amino Transf (AST/SGOT) 13 U/L Alanine Aminotransferase (ALT/SGPT) 39 U/L Alkaline Phosphatase 75 U/L Total Protein 7.4 g/dL Albumin 3.7 g/dL Albumin/Globulin Ratio 1.0 Current Medications Medications (Trade) Dose Ordered Sig/Jules Route PRN Reason Start Time Stop Time Status Last Admin Dose Admin Dorzolamide/ Timolol (Cosopt) 1 drop BID OU 06/13/20 21:00 06/23/20 19:30 Levothyroxine Sodium (Synthroid) 75 mcg DAILY06 PO 06/14/20 06:00 06/23/20 06:19 Lorazepam (Ativan) 0.5 mg TID PO 06/13/20 21:00 06/15/20 17:07 DC 06/15/20 14:00 Olanzapine (ZyPREXA) 15 mg QHS PO 06/13/20 21:00 06/15/20 17:07 DC 06/14/20 19:37 Hydrochlorothiazide (Microzide) 12.5 mg DAILY PO 06/14/20 09:00 06/17/20 11:06 DC 06/17/20 09:45 Acetaminophen (Tylenol) 650 mg PRN Q6HRS PRN PO MILD PAIN / TEMP > 100.3'F 06/13/20 19:30 06/18/20 16:30 Multi-Ingredient Ointment (Analgesic [place]) 1 lia PRN QID PRN TP MUSCLE PAIN 06/13/20 19:30 06/18/20 16:30 Al Hydroxide/Mg Hydroxide (Mylanta Plus Xs) 15 ml PRN AFTMEALHC PRN PO DYSPEPSIA 06/13/20 19:30 Magnesium Hydroxide (Milk Of Magnesia) 2,400 mg PRN QHS PRN PO CONSTIPATION 06/13/20 19:30 Lorazepam (Ativan) 0.25 mg BID PO 06/16/20 09:00 06/15/20 19:54 DC Olanzapine (ZyPREXA) 10 mg QHS PO 06/15/20 21:00 06/20/20 09:00 DC 06/19/20 20:06 Lamotrigine (LaMICtal) 25 mg QHS PO 06/15/20 21:00 06/17/20 23:00 DC 06/17/20 20:24 Lamotrigine (LaMICtal) 50 mg QHS PO 06/18/20 21:00 06/23/20 09:00 DC 06/22/20 20:21 Olanzapine (ZyPREXA) 5 mg QHS PO 06/18/20 21:00 06/19/20 17:39 DC 06/18/20 20:38 Lorazepam (Ativan) 0.25 mg BID92 PO 06/16/20 09:00 06/23/20 14:11 Lorazepam (Ativan) 0.5 mg HS PO 06/15/20 21:00 06/23/20 19:31 Risperidone (RisperDAL) 0.5 mg QHS PO 06/17/20 22:45 06/23/20 19:30 Olanzapine (ZyPREXA) 5 mg QHS PO 06/20/20 21:00 06/21/20 09:00 DC 06/20/20 20:24 Lamotrigine (LaMICtal) 75 mg QHS PO 06/23/20 21:00 06/23/20 19:30 Current Medications Medications (Trade) Dose Ordered Sig/Jules Route PRN Reason Start Time Stop Time Status Last Admin Dose Admin Lamotrigine (LaMICtal) 75 mg QHS PO 06/23/20 21:00 06/23/20 19:30 I have reviewed the current psychotropics carefully including drug interactions. Risk benefit ratio favors no change other than as noted in my dictated progress note. 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
--- NOTE | 2020-06-23 23:59 | NUR ---
The patient is in her room on assumption of care, awake in her bed. She is calm, cooperative and compliant with medications whole. The patient is unable to answer her assessment questions due to language barrier. She appears to be sleeping comfortably at present time. Will continue to monitor.
[2020-06-24] MEDS ORDERED: LAMO25TA31 PO (01:20)
[2020-06-24] MEDS ORDERED: RISP0.5T62 PO (01:21)
[2020-06-24] MEDS ORDERED: LORA-254 PO ×2 (01:22→01:24)
[2020-06-24] MEDS: LEVOTHYROXINE 75 MCG TABLET PO SCH (04:43)
[2020-06-24 06:02] VITALS: BP 129/67
[2020-06-24] MEDS: DORZOLAMIDE/TIMOLOL 2%/0.5% OPHTH SOLUTION 10ML BOTTLE. OU SCH (08:36)
[2020-06-24] MEDS: LORazepam 0.5 MG TABLET PO SCH ×2 (08:36→11:53)
--- NOTE | 2020-06-24 09:54 | NUR ---
Patient calm and cooperative. Patient has no further needs at this time. Patient is being prepped for discharge.
--- NOTE | 2020-06-24 13:02 | NUR ---
Transition Record was faxed to follow-up provider with the following elements: Reason for admission, procedures, tests, principal diagnosis, pending studies, patient instructions, 13/01 contact information for unit, phone number to obtain pending test results, plan for follow-up care, physician follow-up, advanced directive information, and medication list with dose, duration and instructions. This information was included in the following documents: History and physical, lab results, study results, progress notes, social work planning form, DC instruction form, patient visit summary, and medication reconciliation form. Date & time record faxed:06/24/2020 1200 Record faxed to: Dr. Sylvester Record discussed with/ report given to: Elva
--- NOTE | 2020-06-24 21:03 | PDOC ---
Exam Note: Donn Note: Please also refer to the separate dictated note~for this date of service dictated separately.~Patient seen individually. Discussed the patient with Nursing staff reviewed the chart.~Reviewed interim history and current functioning. Reviewed vital signs,~Labs/ Radiology~and current medications noted below. Continue current treatment with the changes noted in the dictated addendum note Assessment: Vital Signs/I&O: Vital Signs Date Time Temp Pulse Resp B/P (MAP) Pulse Ox O2 Delivery O2 Flow Rate FiO2 06/24/20 06:02 97.4 87 16 129/67 (87) 96 06/23/20 06:31 Room Air I & O 06/23/20 06/23/20 06/24/20 15:00 23:00 07:00 Intake Total 560 ml 480 ml 240 ml Balance 560 ml 480 ml 240 ml Current Medications: Meds: Current Medications Medications (Trade) Dose Ordered Sig/Jules Route PRN Reason Start Time Stop Time Status Last Admin Dose Admin Dorzolamide/ Timolol (Cosopt) 1 drop BID OU 06/13/20 21:00 06/24/20 13:06 DC 06/24/20 08:36 Levothyroxine Sodium (Synthroid) 75 mcg DAILY06 PO 06/14/20 06:00 06/24/20 13:06 DC 06/24/20 04:43 Lorazepam (Ativan) 0.5 mg TID PO 06/13/20 21:00 06/15/20 17:07 DC 06/15/20 14:00 Olanzapine (ZyPREXA) 15 mg QHS PO 06/13/20 21:00 06/15/20 17:07 DC 06/14/20 19:37 Hydrochlorothiazide (Microzide) 12.5 mg DAILY PO 06/14/20 09:00 06/17/20 11:06 DC 06/17/20 09:45 Acetaminophen (Tylenol) 650 mg PRN Q6HRS PRN PO MILD PAIN / TEMP > 100.3'F 06/13/20 19:30 06/24/20 13:06 DC 06/18/20 16:30 Multi-Ingredient Ointment (Analgesic Garland) 1 lia PRN QID PRN TP MUSCLE PAIN 06/13/20 19:30 06/24/20 13:06 DC 06/18/20 16:30 Al Hydroxide/Mg Hydroxide (Mylanta Plus Xs) 15 ml PRN AFTMEALHC PRN PO DYSPEPSIA 06/13/20 19:30 06/24/20 13:06 DC Magnesium Hydroxide (Milk Of Magnesia) 2,400 mg PRN QHS PRN PO CONSTIPATION 06/13/20 19:30 06/24/20 13:06 DC Lorazepam (Ativan) 0.25 mg BID PO 06/16/20 09:00 06/15/20 19:54 DC Olanzapine (ZyPREXA) 10 mg QHS PO 06/15/20 21:00 06/20/20 09:00 DC 06/19/20 20:06 Lamotrigine (LaMICtal) 25 mg QHS PO 06/15/20 21:00 06/17/20 23:00 DC 06/17/20 20:24 Lamotrigine (LaMICtal) 50 mg QHS PO 06/18/20 21:00 06/23/20 09:00 DC 06/22/20 20:21 Olanzapine (ZyPREXA) 5 mg QHS PO 06/18/20 21:00 06/19/20 17:39 DC 06/18/20 20:38 Lorazepam (Ativan) 0.25 mg BID92 PO 06/16/20 09:00 06/24/20 13:06 DC 06/24/20 11:53 Lorazepam (Ativan) 0.5 mg HS PO 06/15/20 21:00 06/24/20 13:06 DC 06/23/20 19:31 Risperidone (RisperDAL) 0.5 mg QHS PO 06/17/20 22:45 06/24/20 13:06 DC 06/23/20 19:30 Olanzapine (ZyPREXA) 5 mg QHS PO 06/20/20 21:00 06/21/20 09:00 DC 06/20/20 20:24 Lamotrigine (LaMICtal) 75 mg QHS PO 06/23/20 21:00 06/24/20 13:06 DC 06/23/20 19:30 I have reviewed the current psychotropics carefully including drug interactions. Risk benefit ratio favors no change other than as noted in my dictated progress note. 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
--- NOTE | 2020-06-24 23:55 | PN ---
DATE: 06/23/2020 PSYCHIATRIC PROGRESS NOTE This late entry 06/23/2020 covers elements not covered in my initial note. SUBJECTIVE: I met with the patient evening of 06/23/2020 on telehealth rounds. Discussed with BARNEY Vivas. Previously discussed with nursing staff as well and family. The patient has been doing better. She slept 8-1/2 hours previous night. She continues to speak preferentially in [place], but seems to connect better during the conversation I had with her, seemed to understand better as I discussed my prior conversation with her daughter, Elva. She is coming out more interactive with others. REVIEW OF SYSTEMS: No CV, , pulmonary, eye, ENT system symptoms on review. MENTAL STATUS EXAM: Oriented to herself and situation, but difficult to assess due to the language barrier. No CV, , pulmonary, eye, ENT system symptoms on review. MENTAL STATUS EXAMINATION: Oriented as noted. Speech has some latency, coherent. Abstraction fair, computation impaired, language function intact, attention span short. Mood and affect is improved. Paranoia is improved. LABORATORY DATA: Reviewed. IMPRESSION: Bipolar disorder, mixed with psychotic features, in partial remission. Rest unchanged. PLAN: Continue psychotropics from initial note. We will plan to discharge the patient on 06/24/2020 if she continues to show progress. Reviewed with staff on this in the family to be informed. GARFIELD BELTRAN MD DR: SILVIA/thao JOB#: [id number] / [id number]
--- NOTE | 2020-06-25 01:35 | DS ---
DATE OF DISCHARGE: 06/24/2020 DISCHARGE SUMMARY/PSYCHIATRIC PROGRESS NOTE REASON FOR ADMISSION: Please refer to the admission history for details. Briefly, the patient is a 79-year-old [place] female who speaks essentially in [place]e, referred by Dr. Nadeen Caal, her primary care physician from [facility]. The patient has a long history of bipolar disorder, recently getting more psychotic, paranoid, delusional, nervous with increased confusion. She had failed outpatient psychiatric interventions, referred for inpatient psychiatric stabilization. Dr. Caal had called me prior to the patient's admission and we had talked directly about reasons for the referral, disorganization, dangerous behaviors, prompting the inpatient hospitalization. SIGNIFICANT FINDINGS AND CLINICAL COURSE: Following admission, the patient was seen daily individually by myself from a psychiatric standpoint, medical followup with Dr. Singleton/Dr. Lainez. The patient remained extremely psychotic, paranoid. This was complicated by her inability to speak Tu[place] as she spoke just [place]. Nevertheless, her family communicated with her regularly on the phone and video calls twice a day and were able to provide us feedback, which helped us adjust her psychotropics. Given the significant psychotic symptoms and a past history reflective of bipolar disorder, her psychotropics were adjusted. She finally seemed to respond to a combination of Risperdal 0.5 mg at bedtime, Lamictal 75 mg at bedtime with a plan to gradually increase it further as an outpatient. She was also on Ativan 0.25 mg b.i.d. and 0.5 mg at bedtime and this could be tapered further as an outpatient. She is also on olanzapine 15 mg at bedtime, which was gradually reduced to 10 mg at bedtime, then 5 mg at bedtime and then stopped ultimately. Prior to discharge on 06/24/2020, the patient was communicating somewhat better despite her language barrier, it was easier for her to understand staff as well. She is less paranoid, psychotic ____ confirmed this. I had another conversation with Dr. Caal prior to the patient's discharge. REVIEW OF SYSTEMS: Prior to discharge on 06/24/2020, no CV, , pulmonary, eye, ENT system symptoms on review. MENTAL STATUS EXAM: Oriented to herself and situation. Speech has some latency, coherent, often responses monosyllabic. Abstraction fair, computation impaired, language function intact, attention span short. Mood and affect somewhat withdrawn, but improved. No suicidal or homicidal ideation. LABORATORY DATA: Reviewed. FINAL DIAGNOSES: Major bipolar disorder, mixed with psychotic features, in partial remission; anxiety disorder, unspecified; mild cognitive impairment. Rest unchanged from admission. DISCHARGE MEDICATIONS: Please refer to the [facility]. DISCHARGE INSTRUCTIONS: Outpatient psychiatric and medical followup is arranged prior to discharge. Lamictal should be further increase post-discharge. Ativan to be tapered further. Risperdal adjusted depending on her psychotic symptoms. Time for discharge day management greater than 30 minutes. MAN Rosanna BELTRAN MD DR: SILVIA/thao JOB#: [id number] / [id number]
== END 2020-06-24 13:06 | disposition home or self-care (01) | DRG 885 ==
LOC: GEROPSY 16:00
PROVIDERS: ADMIT Psychiatry & Neurology Psychiatry; ATTEND Psychiatry & Neurology Psychiatry
DX: F31.64 Bipolar disorder, current episode mixed, severe, with psychotic features (principal); F01.51 Vascular dementia, unspecified severity, with behavioral disturbance; F02.81 Dementia in other diseases classified elsewhere, unspecified severity, with behavioral disturbance; E03.9 Hypothyroidism, unspecified; M79.7 Fibromyalgia; H40.9 Unspecified glaucoma; F41.1 Generalized anxiety disorder; I10 Essential (primary) hypertension; F63.9 Impulse disorder, unspecified; Z79.899 Other long term (current) drug therapy; Z20.822 Contact with and (suspected) exposure to COVID-19
CPT/HCPCS: 36415; 80053; 80061; 81001; 82306; 82607; 83036; 83540; 83550; 83735; 84436; 84443; 84480; 85025; 85379; 86592; 87086; 93005; U0003; 97535